=== PATIENT | male | born 1955 | race Caucasian/White ===

== ENCOUNTER → 2020-01-01 13:49 | Outpatient (BNVA) | payer MEDICARE, SELFPAY | PROVIDERS: Family Provider Family Medicine; PCP Family Medicine; Visit Provider Internal Medicine Rheumatology | DX: M06.00 Rheumatoid arthritis without rheumatoid factor, unspecified site (principal); Z79.899 Other long term (current) drug therapy; M43.22 Fusion of spine, cervical region; Z79.52 Long term (current) use of systemic steroids | CPT/HCPCS: 99214 ==

== ENCOUNTER → 2020-03-10 11:52 | Outpatient (BNVA) | payer MEDICARE, SELFPAY | PROVIDERS: Family Provider Family Medicine; PCP Family Medicine; Visit Provider Internal Medicine Rheumatology | DX: Z79.899 Other long term (current) drug therapy (principal) | CPT/HCPCS: 36415; 80076; 82306; 82565; 85025; 85651; 86140 ==

== ENCOUNTER → 2020-04-20 15:46 | Outpatient (BNVA) | payer MEDICARE, SELFPAY | PROVIDERS: Family Provider Family Medicine; PCP Family Medicine; Visit Provider Internal Medicine Rheumatology | DX: M06.00 Rheumatoid arthritis without rheumatoid factor, unspecified site (principal); M43.22 Fusion of spine, cervical region; Z79.52 Long term (current) use of systemic steroids; R76.8 Other specified abnormal immunological findings in serum | CPT/HCPCS: 99214 ==

== ENCOUNTER 2020-07-05 12:00 | Outpatient (CLI) | payer MEDICARE, SELFPAY ==
--- NOTE | 2020-07-05 12:10 | XR_ITS ---
WS: [id number] EXAM: Chest: PA and lateral DATE OF EXAMINATION: 07/05/2020, 1224 hours COMPARISON: Chest x-ray from 09/04/2019. 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 Prior neck surgery, bypass surgery and cardiac stents. FINDINGS: The heart size is normal. The mediastinal contours are again demonstrate wire banding for prior ster notomy. No hardware failure is seen. Multiple surgical clips in the left side of the heart. There has been interval placement of extensive cervical spine posterior decompression and fusion.. Pulmonary vascularity is within normal limits. The lungs are clear. No effusion, or pneumothorax. Bone density is normal in appearance. XR/XR chest 2V* [id number] IMPRESSION: NO ACUTE PULMONARY DISEASE.
== END 2020-07-05 12:01 | disposition home or self-care (01) ==
LOC: RAD 12:06
PROVIDERS: PCP Family Medicine; Visit Provider Internal Medicine Cardiovascular Disease
DX: S22.23XA Sternal manubrial dissociation, initial encounter for closed fracture (principal); X58.XXXA Exposure to other specified factors, initial encounter
CPT/HCPCS: 71046

== ENCOUNTER → 2020-07-22 14:57 | Outpatient (BNVA) | payer MEDICARE, SELFPAY | PROVIDERS: PCP Family Medicine; Visit Provider Internal Medicine Rheumatology | DX: M06.00 Rheumatoid arthritis without rheumatoid factor, unspecified site (principal); Z79.899 Other long term (current) drug therapy; M43.22 Fusion of spine, cervical region; Z79.52 Long term (current) use of systemic steroids | CPT/HCPCS: 36415; 80076; 82565; 85025; 85651; 86140; 99214 ==

== ENCOUNTER 2020-08-24 09:49 | Outpatient (CLI) | payer MEDICARE, SELFPAY ==
[2020-08-24 10:05] VITALS: BMI 28.5
--- NOTE | 2020-08-24 10:17 | NMCV_ITS ---
NM mary perf SPECT r/s* [id number] Aj Alegre Age: 64 Gender: M : 1955 Exam Date: 08/24/2020 11:11 Ordering Phys: Milena Batista MD ([email or web address]) Technologist: HANK Campa Exam Location: [facility] Indications: ATYPICAL CHEST PAIN STRESS TEST Please [facility] IMAGE PROTOCOL Rest/Stress 1 Lexiscan Day Radiopharmaceutical Dose (mCi) Administration Site Administered by Rest: Tc-99m 10.5 IV HANK Gerber Sestamibi Stress:Tc-99m 32.9 IV HANK Campa Sestamikody Rest: 24-Aug-2020 60 Discovery 630 Stress: 24-Aug-2020 30 Discovery 630 0.4mg Lexiscan. Images obtained in supine and prone position. SPECT RESULTS Technical Quality: Good Raw Data Analysis: Normal Image Corrections: No attenuation or motion correction applied Summed Stress Score: 0 Summed Rest Score: 0 Summed Difference Score: 0 PERFUSION FINDINGS Fairly uniform myocardial tracer uptake with no significant perfusion abnormalities FUNCTIONAL RESULTS (calculated via Gated SPECT) Stress Image LV EF (%): 72 Stress EDV (mL):68 TID: 0.78 Stress ESV (mL):19 FUNCTIONAL FINDINGS: Segmental wall motion analysis revealing no gross wall motion abnormalities IMPRESSIONS 1. Unremarkable myocardial perfusion imaging 2. Normal LV ejection fraction of 72%. 3. LV wall motion analysis revealing no gross wall motion normalities 4. Normal LV volume. No significant coronary ischemia, based on the above findings Dr Milena Batista MD FACC (Electronically Signed) Final Date: 24 August 2020 15:15 S
--- NOTE | 2020-08-24 10:17 | ECG_ITS ---
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 Interpretive Statements NAME OF STUDY: LEXISCAN SESTAMIBI STRESS TEST INDICATION: Chest Pain PROCEDURE: At the baseline, the EKG revealed normal sinus rhythm with a poor R wave progression. 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 Diffuse nonspecific ST-T changes.. The baseline blood pressure was 180/104 mm Hg with a heart rate of 86 beats/min. Lexiscan was infused over a period of 20 seconds. A total of 0.4 milligrams of Lexiscan was infused. The stress phase was continued for a total of 5 minutes. Heart rate at the end of the stress phase was 95 with a blood pressure 182/101. The EKG at the peak infusion revealed more prominent T depressions in the inferolateral leads Sestamibi was injected 20 seconds after the Lexiscan infusion. Blood pressure at the end of the recovery phase was 178/103 with a heart rate of 95 per minute. CONCLUSION: 1. Nonspecific EKG changes with the LexiScan infusion 2. No LexiScan induced chest pain or cardiac arrhythmia 3. Normal blood pressure and heart rate response 4. Sestamibi/sestamibi perfusion scan pending; see separate report. Electronically Signed On 08-24-2020 20:48:41 [employer]LECT[employer] OFFICER by Milena Batista M.D. [email or web address]
--- NOTE | 2020-08-24 12:59 | SUR.PREOP ---
Patient reports no pain or discomfort prior to the start of the procedure.
[2020-08-24] MEDS: regadenoson 0.4 Mg/5 ml Syringe IVP (13:04)
[2020-08-24 13:16] VITALS: BP 148/68; PULSE 73
== END 2020-08-24 09:50 | disposition home or self-care (01) ==
LOC: CDL 09:53
PROVIDERS: PCP Family Medicine; Visit Provider Internal Medicine Cardiovascular Disease
DX: R07.89 Other chest pain (principal); I10 Essential (primary) hypertension
CPT/HCPCS: 78452; 93017; A9500; J2785

== ENCOUNTER → 2020-09-27 13:47 | Outpatient (BNVA) | payer BC, SELFPAY | PROVIDERS: PCP Family Medicine; Visit Provider Internal Medicine Rheumatology | DX: Z79.899 Other long term (current) drug therapy (principal) | CPT/HCPCS: 36415; 80076; 82306; 82565; 85025; 85651; 86140 ==

== ENCOUNTER → 2020-10-27 13:13 | Outpatient (BNVA) | payer BC, SELFPAY | PROVIDERS: PCP Family Medicine; Visit Provider Internal Medicine Rheumatology | DX: M06.041 Rheumatoid arthritis without rheumatoid factor, right hand (principal); M06.042 Rheumatoid arthritis without rheumatoid factor, left hand; Z79.899 Other long term (current) drug therapy; Z79.52 Long term (current) use of systemic steroids; Z87.891 Personal history of nicotine dependence | CPT/HCPCS: 99214 ==

== ENCOUNTER → 2020-12-01 08:31 | Outpatient (BNVA) | payer BC, SELFPAY | PROVIDERS: PCP Family Medicine; Visit Provider Internal Medicine Rheumatology | DX: M06.041 Rheumatoid arthritis without rheumatoid factor, right hand (principal); M06.042 Rheumatoid arthritis without rheumatoid factor, left hand; Z79.899 Other long term (current) drug therapy | CPT/HCPCS: 80076; 82565; 85025; 86140 ==

== ENCOUNTER 2021-02-01 14:01 | Outpatient (CLI) | payer MEDICARE, SELFPAY ==
[2021-02-01] MEDS: iohexol 300 mg/mL 50 mL Btl PO (14:13)
--- NOTE | 2021-02-01 14:30 | CT_ITS ---
WS: [id number] CT ABDOMEN CONTRAST TECHNIQUE: Contrast enhanced CT of the abdomen with coronal and sagittal reformatted images. CLINICAL INFORMATION: R10.9 - Unspecified abdominal pain COMPARISON: CT 9 019 DLP: 943.[address] scans at [facility] use at least one of these dose optimization techniques: automat ed exposure control; mA and/or kV adjustment per patient size (includes targeted exams where dose is matched to clinical indication); or iterative reconstruction. FINDINGS: Diffuse fatty infiltration the liver. Incidental hepatic cysts. Cholecystectomy. Normal portal vein a nd splenic vein. Normal spleen. Normal pancreatic enhancement. Normal GE junction. Lung bases are wel l aerated. Normal caliber abdominal aorta. Adrenal glands are normal. Normal renal parenchymal enhanc ement. No hydronephrosis. Tiny right cortical cysts. Segmental narrowing involving the proximal transverse colon extending over approximately 9 CM with s ubmucosal enhancement and slight induration. This may be due to spasm but is nonspecific. Recommend c orrelation for colitis. This can be further evaluated with colonoscopy. No abdominal lymphadenopathy. Tiny fat-containing umbilical hernia. Sigmoid diverticulosis. No eviden ce of acute diverticulitis. Normal descending colon. Otherwise normal transverse colon. Normal append ix in the right lower quadrant. Hypertrophic changes lumbar spine. CT/CT abdomen w con* [id number] IMPRESSION: 1. Sigmoid diverticulosis. No evidence of acute diverticulitis. 2. Diffuse fatty infiltration of the liver. A few incidental hepatic cysts. 3. Segmental narrowing with slight induration involving the proximal transver se colon extending over approximately 9 CM. This may be due to spasm but is non specific. Recommend correlation for colitis. This can be further evaluated wit h colonoscopy. 4. Prior cholecystectomy. 5. Incidental fat-containing umbilical hernia. 6. No abdominal lymphadenopathy. 7. Normal caliber abdominal aorta. 8. No other significant changes from previous.
[2021-02-01 14:39] LABS: Blood Urea Nitrogen 15 mg/dL (8-23)
[2021-02-01] MEDS: iohexol 300 mg/mL 100 mL Btl IV (14:54)
== END 2021-02-01 14:02 | disposition home or self-care (01) ==
LOC: RADWPI 14:07
PROVIDERS: PCP Family Medicine; Visit Provider Surgery
DX: R10.9 Unspecified abdominal pain (principal); K57.30 Diverticulosis of large intestine without perforation or abscess without bleeding; K76.0 Fatty (change of) liver, not elsewhere classified; K42.9 Umbilical hernia without obstruction or gangrene; Z90.49 Acquired absence of other specified parts of digestive tract
CPT/HCPCS: 74160; 82565; 84520; Q9967

== ENCOUNTER → 2021-03-02 14:04 | Outpatient (BNVA) | payer MEDICARE, SELFPAY | PROVIDERS: PCP Family Medicine; Visit Provider Internal Medicine Rheumatology | DX: M06.041 Rheumatoid arthritis without rheumatoid factor, right hand (principal); M06.042 Rheumatoid arthritis without rheumatoid factor, left hand; Z79.899 Other long term (current) drug therapy; Z79.52 Long term (current) use of systemic steroids; Z87.891 Personal history of nicotine dependence | CPT/HCPCS: 36415; 80076; 99214 ==

== ENCOUNTER 2021-03-02 15:44 | Outpatient (CLI) | payer MEDICARE, SELFPAY ==
[2021-03-02 16:30] LABS: Alkaline Phosphatase 76 IU/L (40-130); Globulin 3.2 g/dL (1.3-4.6); Total Bilirubin 0.6 mg/dL (0.15-1.2); Total Protein 7.2 g/dL (6.6-8.7)
[2021-03-02 18:41] LABS: Alanine Aminotransferase 13 U/L (0-41); Aspartate Amino Transferase 26 U/L (0-40)
== END 2021-03-02 15:45 | disposition home or self-care (01) ==
LOC: LAB 15:50
PROVIDERS: PCP Family Medicine; Visit Provider Internal Medicine Rheumatology
DX: M06.041 Rheumatoid arthritis without rheumatoid factor, right hand (principal); M06.042 Rheumatoid arthritis without rheumatoid factor, left hand; Z79.899 Other long term (current) drug therapy
CPT/HCPCS: 36415; 80076

== ENCOUNTER → 2021-03-03 10:03 | Outpatient (BNVA) | payer MEDICARE, SELFPAY | PROVIDERS: PCP Family Medicine; Visit Provider Surgery | DX: Z20.822 Contact with and (suspected) exposure to COVID-19 (principal); R10.9 Unspecified abdominal pain; R19.7 Diarrhea, unspecified | CPT/HCPCS: 87635 ==

== ENCOUNTER 2021-03-08 09:00 | Day surgery (SDC) | payer MEDICARE, SELFPAY ==
[2021-03-04 12:47] VITALS: BMI 28.7
[2021-03-08 09:20] VITALS: BP 157/97; PULSE 89; RESP 18; TEMP 36.3; O2SAT 99
[2021-03-08] MEDS: sodium chloride 0.9% 1,000 ML 30 ML IV (09:45)
--- NOTE | 2021-03-08 10:08 | ANES.PREANE2 ---
Pre-Anesthetic Assessment Pre-Anesthetic Assessment: Height/Weight: Height 1.73 m Weight 85.729 kg Temp Pulse Resp BP Pulse Ox 97.3 F L 89 18 157/97 99 03/08/21 09:20 03/08/21 09:20 03/08/21 09:20 03/08/21 09:20 03/08/21 09:20 Preop Diagnosis: Epigastric pain Proposed Procedure: Operation Date: 03/08/21 10:00 Proposed Procedures p EGD 14086 R10.6(Not Applicable) - Tomi Ruiz MD s Colonoscopy 84279 R19.7(Not Applicable) - Tomi uRiz MD Was Beta Gibran taken within 24 hours: Yes Was Clonidine taken within 24 hours: N/A Last intake: Intake Last Liquid Date 03/07/21 Last Liquid Time 21:00 Last Solid Date 03/06/21 Last Solid Time 00:00 Social: Social History: No alcohol and No tobacco Exam: Pre-Anes Outpt Exam: alert, oriented x 3, clear to auscultation bilaterally and regular rate & rhythm Airway: Submandibular: WNL Cervical ROM: Other (limited) MP: 1 Pulmonary: Pulmonary: None reported CV/HEM: CV/HEM: CAD, HTN and WI : : None reported Hepatic: Hepatic: None reported GI: GI: GERD Comments: diarrhea Metabolic: Metabolic: None reported Musc/skel: Musc/skel: OA/DJD Neuropsych: Neuropsych: None reported Anesthetic Plan: ASA status: 3 Anesthesia: MAC PFSH Anesthesia PFSH: Medical History Atherosclerotic heart disease of [place] coronary artery without angina pectoris Atypical chest pain Benign essential HTN CAD (coronary artery disease) Chronic steroid use Dyslipidemia (high LDL; low HDL) Fusion of spine of cervical region GERD (gastroesophageal reflux disease) High risk medication use Hyperlipidemia Hypertension Immunization counseling Osteoarthritis PMR (polymyalgia rheumatica) Seronegative rheumatoid arthritis 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
--- NOTE | 2021-03-08 10:26 | W.PM.OPSUD ---
Surgery/Procedure H&P Update DATE OF PROCEDURE: March 08, 2021 DATE H&P PERFORMED: 02/16/21 H&P UPDATE INFORMATION: I have reviewed H&P completed within last 30 days, I have examined patient prior to procedure and No changes to prior documentation PREOP DIAGNOSIS: Epigastric pain PRIMARY INDICATION FOR PROCEDURE: THE SAME PLANNED PROCEDURE: Operation Date: 03/08/21 10:00 Proposed Procedures p EGD 95475 R10.6(Not Applicable) - Tomi Ruiz MD s Colonoscopy 75280 R19.7(Not Applicable) - Tomi Ruiz MD
--- NOTE | 2021-03-08 10:58 | ANE.PACU2 ---
Inpatient post-anesthesia follow up: Airway intact: Yes Vital signs: Temperature 97.3 F Pulse Rate 89 Respiratory Rate 18 Blood Pressure 157/97 Pulse Oximetry 99 Oxygen Delivery Me thod Room Air Oxygen Flow Rate Fraction of Inspir ed Oxygen Hydration adequate: Yes Nausea and vomiting: No Pain level: 1
[2021-03-08 11:00] VITALS: BP 110/71; PULSE 70; RESP 18; TEMP 36.5; O2SAT 96
[2021-03-08 11:19] VITALS: BP 124/78; PULSE 69; RESP 18; O2SAT 98
--- NOTE | 2021-03-08 14:48 | ANE.PACU2 ---
Inpatient post-anesthesia follow up: Airway intact: Yes Vital signs: Temperature 97.7 F Pulse Rate 69 Respiratory Rate 18 Blood Pressure 124/78 Pulse Oximetry 98 Oxygen Delivery Me thod Room Air Oxygen Flow Rate Fraction of Inspir ed Oxygen Hydration adequate: Yes Nausea and vomiting: No Pain level: 1 Mental status: Baseline
[2021-03-09 06:09] LABS: H. Pylori / CLO Test Negative
== END 2021-03-08 11:50 | disposition home or self-care (01) ==
PROVIDERS: PCP Family Medicine; Visit Provider Surgery
PROC: 0DJ08ZZ Inspection of Upper Intestinal Tract, Via Natural or Artificial Opening Endoscopic (ICD-10-PCS; CPT 43235; principal; 2021-03-08 10:00)
PROC: 0DJD8ZZ Inspection of Lower Intestinal Tract, Via Natural or Artificial Opening Endoscopic (ICD-10-PCS; CPT 45378; 2021-03-08 10:00)
DX: R10.13 Epigastric pain (principal); K21.9 Gastro-esophageal reflux disease without esophagitis; K57.30 Diverticulosis of large intestine without perforation or abscess without bleeding; K29.70 Gastritis, unspecified, without bleeding; Z79.52 Long term (current) use of systemic steroids; I10 Essential (primary) hypertension; I25.10 Atherosclerotic heart disease of native coronary artery without angina pectoris; E78.5 Hyperlipidemia, unspecified; Z98.1 Arthrodesis status; M19.90 Unspecified osteoarthritis, unspecified site; Z87.891 Personal history of nicotine dependence; I25.2 Old myocardial infarction
CPT/HCPCS: 43239; 45378; 82274; 83630; 87077; 87493; 87506; 88305; 96360; 96361; J2704; J7030

== ENCOUNTER → 2021-05-23 09:06 | Outpatient (BNVA) | payer MEDICARE, SELFPAY | PROVIDERS: PCP Family Medicine; Visit Provider Internal Medicine Rheumatology | DX: M06.041 Rheumatoid arthritis without rheumatoid factor, right hand (principal); M06.042 Rheumatoid arthritis without rheumatoid factor, left hand; Z79.899 Other long term (current) drug therapy; Z01.89 Encounter for other specified special examinations | CPT/HCPCS: 80076; 82565; 85025; 86140 ==

== ENCOUNTER → 2021-05-26 14:26 | Outpatient (BNVA) | payer MEDICARE, SELFPAY | PROVIDERS: PCP Family Medicine; Visit Provider Internal Medicine Rheumatology | DX: M06.041 Rheumatoid arthritis without rheumatoid factor, right hand (principal); M06.042 Rheumatoid arthritis without rheumatoid factor, left hand; Z79.899 Other long term (current) drug therapy; K57.90 Diverticulosis of intestine, part unspecified, without perforation or abscess without bleeding; K29.70 Gastritis, unspecified, without bleeding; Z79.52 Long term (current) use of systemic steroids; Z71.89 Other specified counseling; Z87.891 Personal history of nicotine dependence | CPT/HCPCS: 99214 ==

== ENCOUNTER → 2021-09-06 11:21 | Outpatient (BNVA) | payer MEDICARE, SELFPAY | PROVIDERS: PCP Family Medicine; Visit Provider Internal Medicine Rheumatology | DX: M06.041 Rheumatoid arthritis without rheumatoid factor, right hand (principal); M06.042 Rheumatoid arthritis without rheumatoid factor, left hand; Z79.899 Other long term (current) drug therapy; Z79.52 Long term (current) use of systemic steroids; R14.0 Abdominal distension (gaseous); Z98.1 Arthrodesis status; Z71.89 Other specified counseling; Z87.891 Personal history of nicotine dependence | CPT/HCPCS: 99214 ==

== ENCOUNTER → 2021-09-13 08:48 | Outpatient (BNVA) | payer MEDICARE, SELFPAY | PROVIDERS: PCP Family Medicine; Visit Provider Internal Medicine Rheumatology | DX: Z79.899 Other long term (current) drug therapy (principal); M06.041 Rheumatoid arthritis without rheumatoid factor, right hand; M06.042 Rheumatoid arthritis without rheumatoid factor, left hand | CPT/HCPCS: 80076; 82565; 85025; 86140 ==

== ENCOUNTER → 2022-01-02 11:18 | Outpatient (BNVA) | payer MEDICARE, SELFPAY | PROVIDERS: PCP Family Medicine; Visit Provider Internal Medicine Rheumatology | DX: M06.041 Rheumatoid arthritis without rheumatoid factor, right hand (principal); M06.042 Rheumatoid arthritis without rheumatoid factor, left hand; Z79.899 Other long term (current) drug therapy; Z79.52 Long term (current) use of systemic steroids; M43.22 Fusion of spine, cervical region; Z71.89 Other specified counseling | CPT/HCPCS: 80076; 82565; 85025; 86140; 99214 ==

== ENCOUNTER 2022-01-02 12:27 | Outpatient (CLI) | payer MEDICARE, SELFPAY ==
[2022-01-02 13:01] LABS: Basophils # 0.1 10^3/uL (0.0-0.1); Basophils % 0.5 %; Eosinophils % 0.1 %; Hematocrit 43.4 % (42.0-52.0); Hemoglobin 14.6 g/dL (11.7-16.6); Lymphocytes # 0.8 10^3/uL (0.8-4.8); Lymphocytes % 7.1 %; Mean Corpuscular HGB Conc 33.6 g/dL (30.0-36.0); Mean Corpuscular Hemoglobin 30.7 pg (28.0-34.0); Mean Corpuscular Volume 91.4 fl (80-94); Mean Platelet Volume 9.4 fL (7.4-10.4); Monocytes # 0.6 10^3/uL (0.2-0.9); Monocytes % 5.5 %; Neutrophils # 9.58 10^3/uL (1.8-7.7); Neutrophils % 82.3 %; Nucleated Red Blood Cells % 0 %; Platelet Count 157 10^3/cmm (130-400); Red Blood Count 4.75 10^6/uL (4.1-5.3); Red Cell Distribution Width 14.3 % (12.1-15.1); White Blood Count 11.7 10^3/uL (4.0-10.0)
[2022-01-02 13:28] LABS: Alanine Aminotransferase 25 U/L (0-41); Alkaline Phosphatase 53 IU/L (40-130); Aspartate Amino Transferase 20 U/L (0-40); Globulin 2.7 g/dL (1.3-4.6); Glomerular Filtration Rate 84.2 mL/min (90-130); Total Bilirubin 0.4 mg/dL (0.15-1.2); Total Protein 6.7 g/dL (6.6-8.7)
== END 2022-01-02 12:28 | disposition home or self-care (01) ==
LOC: LAB 12:29
PROVIDERS: PCP Family Medicine; Visit Provider Internal Medicine Rheumatology
DX: M06.041 Rheumatoid arthritis without rheumatoid factor, right hand (principal); M06.042 Rheumatoid arthritis without rheumatoid factor, left hand; Z79.899 Other long term (current) drug therapy
CPT/HCPCS: 80076; 82565; 85025; 86140

== ENCOUNTER → 2022-01-20 08:56 | Outpatient (BNVA) | payer MEDICARE, SELFPAY | PROVIDERS: PCP Family Medicine; Visit Provider Internal Medicine Cardiovascular Disease | DX: R07.89 Other chest pain (principal) | CPT/HCPCS: 99213 ==

== ENCOUNTER → 2022-05-08 13:28 | Outpatient (BNVA) | payer MEDICARE, SELFPAY | PROVIDERS: PCP Family Medicine; Visit Provider Internal Medicine Rheumatology | DX: M06.041 Rheumatoid arthritis without rheumatoid factor, right hand (principal); M06.042 Rheumatoid arthritis without rheumatoid factor, left hand; Z79.899 Other long term (current) drug therapy; Z79.52 Long term (current) use of systemic steroids; Z98.1 Arthrodesis status; Z96.7 Presence of other bone and tendon implants; Z71.89 Other specified counseling | CPT/HCPCS: 80076; 82565; 85025; 85651; 86140; 99214 ==

== ENCOUNTER → 2022-09-06 12:29 | Outpatient (BNVA) | payer MEDICARE, SELFPAY | PROVIDERS: PCP Family Medicine; Visit Provider Internal Medicine Rheumatology | DX: M06.041 Rheumatoid arthritis without rheumatoid factor, right hand (principal); M06.042 Rheumatoid arthritis without rheumatoid factor, left hand; Z79.899 Other long term (current) drug therapy; Z71.89 Other specified counseling; Z79.52 Long term (current) use of systemic steroids; Z98.890 Other specified postprocedural states; Z96.7 Presence of other bone and tendon implants | CPT/HCPCS: 36415; 80076; 82565; 85025; 86140; 99214 ==

== ENCOUNTER → 2022-10-02 15:25 | Outpatient (BNVA) | payer MEDICARE, SELFPAY | PROVIDERS: PCP Family Medicine; Referring Provider Nurse Practitioner Family; Visit Provider Specialist | DX: M17.0 Bilateral primary osteoarthritis of knee (principal) | CPT/HCPCS: 73560; 73565; 99204 ==

== ENCOUNTER → 2022-10-31 13:49 | Outpatient (BNVA) | payer MEDICARE, SELFPAY | PROVIDERS: PCP Family Medicine; Visit Provider Internal Medicine Cardiovascular Disease | DX: I25.10 Atherosclerotic heart disease of native coronary artery without angina pectoris (principal); Z95.1 Presence of aortocoronary bypass graft; E78.5 Hyperlipidemia, unspecified; S22.23XK Sternal manubrial dissociation, subsequent encounter for fracture with nonunion; I10 Essential (primary) hypertension; X58.XXXD Exposure to other specified factors, subsequent encounter | CPT/HCPCS: 99214 ==

== ENCOUNTER 2022-12-11 08:05 | Outpatient (CLI) | payer MEDICARE, SELFPAY ==
--- NOTE | 2022-12-11 08:22 | NM_ITS ---
WS: [id number] NUCLEAR MEDICINE BONE SCAN Radiopharmaceutical: 24.9 Tc-99m MDP mCi IV Injection site: Antecubital Postinjection imaging delay: 1 hr CLINICAL INFORMATION: abnormality to xray COMPARISON: Radiograph October 02, 2022 FINDINGS: Bone lesions: Prior postoperative changes plate and screw fixation RIGHT proximal tibia. Normal peria rticular uptake about the RIGHT proximal tibia. No evidence of osteomyelitis or hardware loosening. H ypertrophic RIGHT patella with patella enthesophytes with associated increased activity. Mild degener ative uptake LEFT knee. Increased asymmetric intense uptake about the RIGHT sacroiliac joint is indeterminant. Recommend furt her evaluation with MRI. Soft tissue contours: Normal. Kidneys: Normal. Other findings: Dental degenerative uptake both AC joints and sternoclavicular joints. NM/NM bone scan whole body* [id number] IMPRESSION: 1. Postoperative changes lateral plate and screw fixation RIGHT proximal tibia . No evidence of osteomyelitis or loosening. 2. Hypertrophic patella with enthesophytes and increased punctate activity abo ut the patella likely inflammatory or degenerative 3. Asymmetric intense uptake involving the RIGHT sacroiliac joint posteriorly. Recommend correlation with sacroiliitis or sacral pain. This is indeterminant and recommend further evaluation with MRI pelvis/sacrum
== END 2022-12-11 08:06 | disposition home or self-care (01) ==
PROVIDERS: PCP Family Medicine; Visit Provider Specialist
DX: M25.569 Pain in unspecified knee (principal); Z98.890 Other specified postprocedural states
CPT/HCPCS: 78306; A9561

== ENCOUNTER → 2022-12-21 10:03 | Outpatient (BNVA) | payer MEDICARE, SELFPAY | PROVIDERS: PCP Family Medicine; Visit Provider Nurse Practitioner Family | DX: M17.0 Bilateral primary osteoarthritis of knee (principal); M53.3 Sacrococcygeal disorders, not elsewhere classified; M54.16 Radiculopathy, lumbar region | CPT/HCPCS: 99214 ==

== ENCOUNTER 2023-01-16 06:55 | Outpatient (CLI) | payer MEDICARE, SELFPAY ==
--- NOTE | 2023-01-16 07:15 | MR_ITS ---
WS: [id number] MRI LUMBAR SPINE NONCONTRAST HISTORY: Severe pain down RIGHT side. No injury. COMPARISON: None available. TECHNIQUE: Sagittal and axial multisequence imaging is submitted. Very mild narrowing of the cervical canal at C2-3. Prior fusion hardware at C6-7. 2 mm retrolisthesis of L5. No marrow edema or fracture. There is a small amount of increased signal w ithin the RIGHT sacrum and pelvis which will be described in better on the sacrum MRI performed on th e same day. Disc spaces and vertebral body heights are well-preserved. Conus terminates normally at L1. L1-L2: Mild facet arthritis. No stenosis. L2-L3: Mild ligamentum flavum and facet arthritis. No significant stenosis. L3-L4: Mild annular disc bulge with ligamentum flavum and facet arthritis. There is mild disc and fac et encroachment into the subarticular recesses and foramina. Mild bilateral subarticular recess and f oraminal stenosis, slightly greater on the RIGHT. L4-L5: Mild ligamentum flavum and facet arthritis. Minimal foraminal narrowing. L5-S1: Asymmetric disc bulging and mild osteophytic ridging. Disc asymmetrically extends into the LEF T subarticular recess and foramina. Disc contacts the LEFT S1 nerve root with moderate to severe LEFT foraminal narrowing. Near complete effacement of fat in the LEFT foramen. Moderate RIGHT foraminal s tenosis. LEFT hemilaminectomy defect. Mild renal atrophy. MR/MR lumbar spine wo con* [id number] IMPRESSION: 1. Asymmetric disc bulging at L5-S1, extending greater to the LEFT. LEFT subar ticular recess and foraminal stenosis. Moderate to severe LEFT foraminal stenos is. Disc contacts both the LEFT L5 and S1 nerve roots. 2. Moderate RIGHT foraminal stenosis at L5-S1. 3. Mild subarticular recess and foraminal stenosis at L3-4. 4. Signal abnormality is again noted in the RIGHT sacrum. This was described o n the recent MRI sacrum. Please refer to that report.
--- NOTE | 2023-01-16 08:00 | MR_ITS ---
WS: [id number] MRI SACRUM without CONTRAST. COMPARISON: Bone scan 10/10/2023 Multiplanar, multisequence imaging is performed without contrast. Significant abnormal T2 and STIR signal throughout the RIGHT sacrum and a large portion of the RIGHT ilium extending to the ischial tuberosity. There is abnormal increased T2 signal extending into the S I joint and also involving the soft tissues surrounding the RIGHT hip. Inflammatory type changes exte nding along the iliacus muscle. Inflammatory changes surrounding what is probably the sciatic nerve o n the RIGHT. There is no well-formed fluid collection. There is no associated soft tissue mass. On th e T1 sequence as they are significantly decreased signal throughout the RIGHT sacrum and ilium. The LEFT SI joint and hip are normal. The visualized lower lumbar region is normal. No free fluid in the pelvis. MR/MR sacrum wo con* [id number] IMPRESSION: 1. Significant abnormal signal involving the RIGHT sacrum, SI joint and RIGHT ilium. Increased signal on the T2 and STIR sequences and very low signal on the T1 sequences. There is involvement of the adjacent soft tissues. Favor infecti on/osteomyelitis as a likely etiology. This is not likely posttraumatic. Neopla sm such as metastatic disease within the differential also but thought less lik michela. 2. These changes correspond to the findings on the bone scan imaging. Postcont rast MR imaging may provide additional information.
== END 2023-01-16 06:56 | disposition home or self-care (01) ==
LOC: RAD 06:58
PROVIDERS: PCP Family Medicine; Visit Provider Nurse Practitioner Family
DX: M53.3 Sacrococcygeal disorders, not elsewhere classified (principal); M51.27 Other intervertebral disc displacement, lumbosacral region; M48.061 Spinal stenosis, lumbar region without neurogenic claudication; M48.07 Spinal stenosis, lumbosacral region
CPT/HCPCS: 72148

== ENCOUNTER → 2023-01-22 13:58 | Outpatient (BNVA) | payer MEDICARE, SELFPAY | PROVIDERS: PCP Family Medicine; Visit Provider Internal Medicine Rheumatology | DX: M06.041 Rheumatoid arthritis without rheumatoid factor, right hand (principal); M06.042 Rheumatoid arthritis without rheumatoid factor, left hand; Z79.899 Other long term (current) drug therapy; Z71.89 Other specified counseling; M53.3 Sacrococcygeal disorders, not elsewhere classified | CPT/HCPCS: 99214 ==

== ENCOUNTER 2023-02-06 11:23 | Outpatient (CLI) | payer MEDICARE, SELFPAY ==
--- NOTE | 2023-02-06 11:45 | MR_ITS ---
WS: [id number] MR OF THE SACRUM WITHOUT GADOLINIUM ENHANCEMENT. INDICATION: Low back pain. Pain and RIGHT leg. Recent biopsy. COMPARISON: January 16, 2023 TECHNIQUE: Sagittal T2, coronal T1, coronal STIR, axial T2 fat sat. FINDINGS: Again seen is diffuse T2 signal abnormality involving the RIGHT hemisacrum extending into t he RIGHT ilium. This crosses the RIGHT sacroiliac joint similar in appearance to the prior examinatio n. Associated soft tissue edema about the RIGHT sacrum and ilium. Edema extends about the RIGHT iliac us muscle. This does not appear significantly changed compared to previous. Loss of the normal fatty T1 bone marrow signal in the RIGHT ilium and RIGHT hemisacrum suspicious for osteomyelitis. Small amount of fluid in the RIGHT SI joint. Perineural inflammation extends into the RIGHT sacral foramen. No drainable fluid collections. Tiny amount of fluid about the dorsal SI joint similar in appearance to previous. MR/MR sacrum wo con* [id number] IMPRESSION: 1. Overall no significant interval changes in the diffuse edema involving the RIGHT hemisacrum and RIGHT ilium extending across the sacroiliac joint. Associa caitlin replacement normal fatty T1 bone marrow signal in the RIGHT sacrum and iliu m. Findings suspicious for infection with osteomyelitis. This is not significan tly changed compared to previous. 2. Small amount of fluid in the RIGHT sacroiliac joint and about the dorsal SI joint unchanged. No drainable fluid collections. 3. Perineural infection/inflammation involving the RIGHT S1 and S2 nerve roots similar to previous. 4. Soft tissue edema extends into the RIGHT pelvic musculature involving the i liacus unchanged. 5. No other significant interval changes. Notified BRISA Sapp at 02/06/2023 1:42 PM.
== END 2023-02-06 11:24 | disposition home or self-care (01) ==
LOC: RAD 11:26
PROVIDERS: PCP Family Medicine; Visit Provider Nurse Practitioner Family
DX: M53.3 Sacrococcygeal disorders, not elsewhere classified (principal)
CPT/HCPCS: 72148

== ENCOUNTER 2023-02-13 13:17 | Emergency (ER) | payer MEDICARE, SELFPAY ==
[2023-02-13] VITALS (9 sets, daily range): BP systolic 144–182; BP diastolic 73–94; PULSE 66–90; RESP 16–17; TEMP 36.6–36.9; O2SAT 94–98
--- NOTE | 2023-02-13 15:30 | MRR_ITS ---
PROCEDURE INFORMATION: Exam: MR Pelvis With Contrast, Sacrum Exam date and time: 02/13/2023 4:18 PM Age: 67 years old Clinical indication: Abnormal findings; Abnormal xray or scan of thoracolumbar spine; Prior surgery; Surgery type: L-spiine/right hip biopsy; Patient HX: Overall no significant interval changes in the diffuse edema involving the right hemisacrum and. Right ilium extending across the sacroiliac joint. Associated replacement normal fatty t1 bone. Marrow signal in the right sacrum and ilium. Findings suspicious for infection with osteomyelitis. This is not significantly changed compared to previous. 2. Small amount of fluid in the right sacroiliac joint and about the dorsal si joint unchanged. No. Drainable fluid collections. 3. Perineural infection/inflammation involving the right s1 and s2 nerve roots similar to previous. 4. Soft tissue edema extends into the right pelvic musculature involving the iliacus unchanged. 5. No other significant interval changes. MR sacrum 02/06/23; Additional info: Pain, prior abnormal imaging TECHNIQUE: Imaging protocol: Magnetic resonance imaging of the pelvis with contrast. Exam focused on the sacrum. Contrast material: MULTIHANCE; Contrast volume: 18 ml; Contrast route: INTRAVENOUS (IV); COMPARISON: MR sacrum wo con* [id number] 02/06/2023 11:50 AM FINDINGS: There is extensive periarticular bone enhancement and soft tissue edema associated with the right sacroiliac joint. There is a moderate amount of loculated fluid and synovitis in the joint space. Subtle periarticular erosive/destructive changes are evident. Left sacroiliac joint is grossly normal in appearance. There is no MR evidence of acute fracture or dislocation. Alignment is anatomic. There is no organized collection or soft tissue mass. No acute tendon or ligament injury is identified. MR/MR sacrum w con [id number] IMPRESSION: Severe right-sided sacroiliitis, likely secondary to septic arthritis/osteomyelitis, as described above.
[2023-02-13] MEDS: gadobenate dimeglumine 20 mL vial IV (16:23)
--- NOTE | 2023-02-13 18:08 | PC.NURSE ---
VS OBTAINED VIA TECH
--- NOTE | 2023-02-13 20:02 | ED_ITS ---
HPI - Extremity Problem General: Chief complaint: Extremity Problem,Nontraumatic Stated complaint: hip pain Time Seen by Provider: 02/13/23 19:58 PFSH ED PFSH: Medical History Atherosclerotic heart disease of [place] coronary artery without angina pectoris Atypical chest pain Benign essential HTN CAD (coronary artery disease) Chronic steroid use Diverticulosis Dyslipidemia (high LDL; low HDL) Epigastric pain Fusion of spine of cervical region Gastritis GERD (gastroesophageal reflux disease) High risk medication use History of nonmelanoma skin cancer Hyperlipidemia Hypertension Immunization counseling Osteoarthritis PMR (polymyalgia rheumatica) Seronegative rheumatoid arthritis 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 Surgical History History of cholecystectomy History of coronary artery bypass graft S/P cervical spinal fusion Family History Father CAD (coronary artery disease) Grandmother CAD (coronary artery disease) Diabetes Lung disease Denies family history of Clotting disorder Dementia Chronic kidney disease (CKD) Suicide Anesthesia complication Bleeding disorder Cancer Stroke Social History Smoking and tobacco status: never smoked Alcohol intake: never Substance/Drug Use: never Course Vital Signs: Vital signs: Vital Signs Temperature 97.9 F 02/13/23 19:30 Pulse Rate 76 02/13/23 19:30 Respiratory Rate 16 02/13/23 18:08 Blood Pressure 182/94 02/13/23 19:30 Pulse Oximetry 98 02/13/23 19:30 Oxygen Delivery Me thod Room Air 02/13/23 19:30 MDM - Extremity (Nontraumatic) Lab Data Radiology Impressions Sacrum/Coccyx MRI 02/13/23 15:30 IMPRESSION: Severe right-sided sacroiliitis, likely secondary to septic arthritis/osteomyelitis, as described above. Discharge Plan Discharge Condition: Stable Prescriptions: No Action zolpidem [Ambien] 10 mg tablet 10 mg PO DAILY venlafaxine 150 mg capsule,extended release 24hr 150 mg PO DAILY hydrocodone-acetaminophen 10-325 mg tablet 1 tab PO BID PRN (Reason: Pain) alprazolam [Xanax] 2 mg tablet 2 mg PO BID fluticasone propionate 50 mcg/actuation spray,suspension 2 spray INTRANASAL DAILY nitroglycerin 0.4 mg tablet, sublingual 0.4 mg SUBLINGUAL Q5M PRN (Reason: Chest Pain) hydrochlorothiazide 25 mg tablet 12.5 mg PO DAILY simethicone [Gas Relief (simethicone)] 80 mg tablet,chewable 80 mg PO DAILY Narcan 4 mg/actuation spray,non-aerosol 4 mg intranasal Q3M PRN Rx Instructions: spray 1 dose into ONE nostril; alternate nostrils w each dose until help arrives cyanocobalamin (vitamin B-12) 1,000 mcg/15 mL liquid 500 mcg PO DAILY cholecalciferol (vitamin D3) 25 mcg (1,000 unit) capsule 25 mcg PO DAILY methylprednisolone [Medrol (Andrew)] 4 mg tablets,dose pack See Rx Instructions PO PER PKG DIR Qty: 21 0RF Rx Instructions: PO PER PKG DIR pantoprazole 40 mg tablet,delayed release (DR/EC) See Rx Instructions .ROUTE .COMPLEX Qty: 90 1RF Dose Instruction: Take 1 tablet by mouth once daily Rx Instructions: Take 1 tablet by mouth once daily prednisone 5 mg tablet 5 mg PO BID Qty: 60 3RF gabapentin 300 mg capsule 300 mg PO TID baclofen 10 mg tablet 10 mg PO BID carvedilol 3.125 mg tablet 3.125 mg PO BID Qty: 60 5RF Rx Instructions: must administer with a meal/food carvedilol 6.25 mg tablet 6.25 mg PO BID 30 Days Qty: 60 5RF Rx Instructions: must administer with a meal/food methotrexate sodium 2.5 mg tablet 20 mg PO .Q7days Qty: 40 3RF Hold Instructions: Doctor's Order Rx Instructions: Split dose Take 4 tabs by mouth in AM and 4 in PM on same day 1x a week clobetasol 0.05 % ointment 1 applic topical BID 14 Days Qty: 60 1RF Rx Instructions: Apply to affected areas no more then two weeks/mo prn alternating with triamcinolone mupirocin 2 % ointment 1 applic topical BID Qty: 22 1RF Rx Instructions: Apply to affected area(s) until healed. ammonium lactate 12 % cream 1 applic topical DAILY Qty: 385 2RF Rx Instructions: Apply to arms daily valsartan 160 mg tablet 160 mg PO DAILY Qty: 90 3RF diazepam [Valium] 5 mg tablet 5 mg PO .COMPLEX PRN (Reason: anxiety) Qty: 2 0RF Rx Instructions: 5 mg orally 1 hour before procedure. You may repeat the second tablet 1/2- hour before PRN; Enbrel 50 mg/mL (1 mL) syringe See Rx Instructions .ROUTE .COMPLEX Qty: 4 1RF Hold Instructions: Doctor's Order Dose Instruction: inject 50 MG SUBCUTANEOUSLY ONCE WEEKLY Rx Instructions: inject 50 MG SUBCUTANEOUSLY ONCE WEEKLY Referrals: Jay Roberts [Primary Care Provider] - Coding Level of Care Code ED Certified Medical Technician Assistant for g Sagar
--- NOTE | 2023-02-13 20:11 | W.ED.EXTPRO ---
HPI - Extremity Problem General: Chief complaint: Extremity Problem,Nontraumatic Stated complaint: hip pain Time Seen by Provider: 02/13/23 19:58 History of Present Illness: Mr. Alegre is a 67-year-old gentleman presenting to the emergency department for evaluation of right pelvis pain with radiation to the leg. Onset of symptoms was gradual approximately 4 months ago without known specific provoking event. Since that time he has had worsening symptoms which have become severe and unrelenting and limited his ability to ambulate. He has been evaluated in the outpatient setting and trialed on various increasing dose and strength of opiates which are no longer helping. At times he does note some weakness however not consistently in the right leg and there is radiation to the right knee region. Overall course of symptoms has worsened. He notes generalized illness associated this though no specific focus of infection identified outside of the suspected joint infection. Intensity is severe. Course has worsened. No other specific changes in health, exacerbating, or alleviating factors identified. Patient does have a history of rheumatoid arthritis, he has a remote history of knee surgery, and remote history of cervical spine surgery. Patient has seen orthopedics in the outpatient setting as well as continuing to see his educational psychologist. He had a MRI without contrast of the pelvis on 01/16 with impression as follows: MPRESSION: ? 1.? Significant abnormal signal involving the RIGHT sacrum, SI joint and RIGHT ilium. Increased signal on the T2 and STIR sequences and very low signal on the T1 sequences. There is involvement of the adjacent soft tissues. Favor infection/osteomyelitis as a likely etiology. This is not likely posttraumatic. Neoplasm such as metastatic disease within the differential also but thought less likely. 2.? These changes correspond to the findings on the bone scan imaging. Postcontrast MR imaging may provide additional information. ? He had an erroneous repeat without contrast study when he was supposed to have a study with contrast on 02/06 which shows essentially no significant changes. He was supposed to have outpatient MRI today however came to the emergency department for worsening uncontrolled pain. Onset (ago): week(s) Pain Consistency: constant Location: right Quality: burning, stabbing, aching and sharp Radiation: distal Relieving factors: nothing Exacerbating factors: weight bearing, walking and palpation Associated symptoms: Reports other Review of Systems General: Reports: 10 or more systems reviewed and unremarkable except in HPI and below PFSH ED PFSH: Medical History Atherosclerotic heart disease of [place] coronary artery without angina pectoris Atypical chest pain Benign essential HTN CAD (coronary artery disease) Chronic steroid use Diverticulosis Dyslipidemia (high LDL; low HDL) Epigastric pain Fusion of spine of cervical region Gastritis GERD (gastroesophageal reflux disease) High risk medication use History of nonmelanoma skin cancer Hyperlipidemia Hypertension Immunization counseling Osteoarthritis PMR (polymyalgia rheumatica) Seronegative rheumatoid arthritis 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 Surgical History History of cholecystectomy History of coronary artery bypass graft S/P cervical spinal fusion Family History Father CAD (coronary artery disease) Grandmother CAD (coronary artery disease) Diabetes Lung disease Denies family history of Clotting disorder Dementia Chronic kidney disease (CKD) Suicide Anesthesia complication Bleeding disorder Cancer Stroke Social History Smoking and tobacco status: never smoked Alcohol intake: never Substance/Drug Use: never Physical Exam Const: COMMON NORMALS: alert GENERAL APPEARANCE: cooperative and well developed HENMT: COMMON NORMALS: normocephalic and atraumatic HEAD & SCALP: normocephalic and atraumatic Eye: COMMON NORMALS: conjunctivae normal CONJUNCTIVA: Yes conjunctivae normal SCLERA: sclerae normal Neck/C-Spine: COMMON NORMALS: supple GENERAL: Yes trachea midline Resp: COMMON NORMALS: clear to auscultation bilaterally EFFORT & INSPECTION: Yes able to speak in complete sentences AUSCULTATION: clear to auscultation bilaterally Cardio: COMMON NORMALS: regular rate and regular rhythm RATE: regular rate RHYTHM: regular rhythm GI: COMMON NORMALS: Soft to palpation PALPATION: Yes Soft to palpation and No Tenderness to palpation present (GI) Back/Pelvis: OTHER: Right lower back and right sacral significant tenderness to palpation with continued tenderness around the pelvis. Limitations in hip range of motion secondary to pain. Extremity: NARRATIVE EXTREMITY EXAM: Pain with palpation of right knee without obvious bony abnormality. Distal CMS intact. GENERAL: Yes normal exam except as noted and No edema Neuro: COMMON NORMALS: moves all extremities SENSORIUM/ORIENTATION: Yes alert and No Orientation impaired Psych: COMMON NORMALS: mental status grossly normal and Normal thought process present THOUGHT PROCESS: Normal thought process present Course Vital Signs: Vital signs: Vital Signs Temperature 97.9 F 02/13/23 19:30 Pulse Rate 85 02/14/23 05:38 Respiratory Rate 18 02/14/23 09:15 Blood Pressure 146/76 02/14/23 09:16 Pulse Oximetry 98 02/14/23 05:38 Oxygen Delivery Me thod Room Air 02/14/23 05:38 MDM - Extremity (Nontraumatic) Medical Decision Making 67-year-old gentleman with history of RA and history of prior orthopedic/spine procedures presenting to the emergency department for increased pain in the context of suspected septic SI joint. Exam as above. Patient is mildly ill-appearing however nontoxic and vitals are satisfactory. Labs with no leukocytosis, normal hemoglobin and platelet count. Metabolic panel without significant derangement. ESR 12, CRP 57.7 MRI sacrum with contrast performed today and read as follows: FINDINGS: ?There is extensive periarticular bone enhancement and soft tissue edema associated with the right sacroiliac joint. There is a moderate amount of loculated fluid and synovitis in the joint space. Subtle periarticular erosive/destructive changes are evident. Left sacroiliac joint is grossly normal in appearance. There is no MR evidence of acute fracture or dislocation. Alignment is anatomic. There is no organized collection or soft tissue mass. No acute tendon or ligament injury is identified. MR/MR sacrum w con [id number] IMPRESSION: Severe right-sided sacroiliitis, likely secondary to septic arthritis/osteomyelitis, as described above. X-ray demonstrates chronic degenerative changes in the right knee however no acute fracture or evidence of acute hardware failure. Patient treated with IV analgesia with only minimal improvement. I discussed the case with orthopedic service as well as hospitalist service. Ultimately the patient exceeds our capability for both specialty consultation and further diagnostic studies. Given worsening of symptoms and MRI findings I do believe that the patient warrants inpatient evaluation. Patient transferred for definitive care. He was agreeable with this plan. Medical Records I reviewed the patient's medical records. Lab Data I reviewed the patient's lab results. 02/13/23 20:31 02/13/23 20:31 Radiology Impressions Sacrum/Coccyx MRI 02/13/23 15:30 IMPRESSION: Severe right-sided sacroiliitis, likely secondary to septic arthritis/osteomyelitis, as described above. Knee X-Ray 02/13/23 21:57 IMPRESSION: 1. Tibial metaphyseal surgical hardware in place. 2. Meniscal chondrocalcinosis Laboratory Results WBC 6.4 10^3/uL (4.0-10.0) 02/13/23 20: RBC 4.51 10^6/uL (4.1-5.3) 02/13/23 20: Hgb 12.4 g/dL (11.7-16.6) 02/13/23 20: Hct 38.4 % (42.0-52.0) L 02/13/23: MCV 85.1 fl (80-94) 02/13/23: MCH 27.5 pg (28.0-34.0) L 02/13/23: MCHC 32.3 g/dL (30.0-36.0) 02/13/23: RDW 13.9 % (12.1-15.1) 02/13/23: Plt Count 234 10^3/cmm (130-400) 02/13/23: MPV 9.1 fL (7.4-10.4) 02/13/23: Neut % (Auto) 72.3 % 02/13/23: Lymph % (Auto) 15.2 % 02/13/23: Republic % (Auto) 10.0 % 02/13/23: Eos % (Auto) 0.8 % 02/13/23: Baso % (Auto) 0.6 % 02/13/23: Neut # (Auto) 4.61 10^3/uL (1.8-7.7) 02/13/23: Lymph # (Auto) 1.0 10^3/uL (0.8-4.8) 02/13/23: Republic # (Auto) 0.6 10^3/uL (0.2-0.9) 02/13/23 20: Eos # (Auto) 0.1 10^3/uL (0.0-0.8) 02/13/23: Baso # (Auto) 0.0 10^3/uL (0.0-0.1) 02/13/23 20: Nucleated RBC % (auto) 0 % 02/13/23 20: Nucleated RBCs # 0.0 /100WBC 02/13/23 20: ESR 12 mm/hr (0-10) H 02/13/23 20: Sodium 138 mmol/L (136-145) 02/13/23 20: Potassium 3.7 mmol/L (3.5-5.1) 02/13/23: Chloride 100 mmol/L (98-107) 02/13/23 20: Carbon Dioxide 29 mmol/L (22-29) 02/13/23 20: Anion Gap 12.7 (5-19) 02/13/23 20: BUN 8 mg/dL (8-23) 02/13/23 20: Creatinine 1.1 mg/dL (0.7-1.2) 02/13/23 20: GFR Calculation 66.6 mL/min (90-130) L 02/13/23: Glucose 92 mg/dL (65-115) 02/13/23 20: Calculated Osmolality 284 mOsm/kg (285-295) L 02/13/23 20: Calcium 9.2 mg/dL (8.5-10.5) 02/13/23 20: Total Bilirubin 0.5 mg/dL (0.15-1.2) 02/13/23 20: AST 14 U/L (0-40) 02/13/23 20: ALT 9 U/L (0-41) 02/13/23 20: Alkaline Phosphatase 80 U/L (40-130) 02/13/23 20: C-Reactive Protein 57.7 mg/L (0.0-4.9) H 02/13/23 20: Total Protein 7.3 g/dL (6.6-8.7) 02/13/23 20: Albumin 3.9 g/dL (3.5-5.2) 02/13/23 20: Globulin 3.4 g/dL (1.3-4.6) 02/13/23 20: Discharge Plan Discharge Patient Disposition: Xfer Short-Term Hosp Clinical Impression: Sacroiliitis, Chronic steroid use, Septic joint, Intractable pain, Osteomyelitis, Immunosuppressed status Condition: Stable Referrals: Jay Robrets [Primary Care Provider] - Coding Level of Care Code ED Installation Coordinator for Ruddy Keith
[2023-02-13 20:50] LABS: Erythrocyte Sedimentation Rate 12 mm/hr (0-10)
[2023-02-13 20:51] LABS: Basophils % 0.6 %; Eosinophils # 0.1 10^3/uL (0.0-0.8); Eosinophils % 0.8 %; Hematocrit 38.4 % (42.0-52.0); Hemoglobin 12.4 g/dL (11.7-16.6); Lymphocytes % 15.2 %; Mean Corpuscular HGB Conc 32.3 g/dL (30.0-36.0); Mean Corpuscular Hemoglobin 27.5 pg (28.0-34.0); Mean Corpuscular Volume 85.1 fl (80-94); Mean Platelet Volume 9.1 fL (7.4-10.4); Monocytes # 0.6 10^3/uL (0.2-0.9); Neutrophils # 4.61 10^3/uL (1.8-7.7); Neutrophils % 72.3 %; Nucleated Red Blood Cells % 0 %; Platelet Count 234 10^3/cmm (130-400); Red Blood Count 4.51 10^6/uL (4.1-5.3); Red Cell Distribution Width 13.9 % (12.1-15.1); White Blood Count 6.4 10^3/uL (4.0-10.0)
[2023-02-13] MEDS: HYDROmorphone 1 mg/mL INJ 1 mL 0.5 MG IVP (20:52)
[2023-02-13 21:09] LABS: Alanine Aminotransferase 9 U/L (0-41); Albumin Level 3.9 g/dL (3.5-5.2); Alkaline Phosphatase 80 U/L (40-130); Anion Gap 12.7 (5-19); Aspartate Amino Transferase 14 U/L (0-40); Blood Urea Nitrogen 8 mg/dL (8-23); C Reactive Protein 57.7 mg/L (0.0-4.9); Calcium 9.2 mg/dL (8.5-10.5); Carbon Dioxide 29 mmol/L (22-29); Chloride 100 mmol/L (98-107); Globulin 3.4 g/dL (1.3-4.6); Glomerular Filtration Rate 66.6 mL/min (90-130); Glucose 92 mg/dL (65-115); Osmolality Calculated 284 mOsm/kg (285-295); Potassium 3.7 mmol/L (3.5-5.1); Sodium 138 mmol/L (136-145); Total Bilirubin 0.5 mg/dL (0.15-1.2); Total Protein 7.3 g/dL (6.6-8.7)
[2023-02-13] MEDS: HYDROmorphone 1 mg/mL INJ 1 mL IVP ×2 (21:37→23:28)
--- NOTE | 2023-02-13 21:57 | XRR_ITS ---
PROCEDURE INFORMATION: Exam: XR Right Knee Exam date and time: 02/13/2023 10:01 PM Age: 67 years old Clinical indication: Pain; Right; Prior surgery; Surgery date: 6+ months; Surgery type: RT knee; Additional info: R knee pain, atrumatic TECHNIQUE: Imaging protocol: Radiologic exam of the right knee. Views: 3 views. COMPARISON: NM bone scan whole body* [id number] 12/11/2022 8:22 AM FINDINGS: Bones/joints: Tibial metaphyseal surgical hardware in place. Soft tissues: Meniscal chondrocalcinosis XR/XR knee RT 3V* [id number] IMPRESSION: 1. Tibial metaphyseal surgical hardware in place. 2. Meniscal chondrocalcinosis
[2023-02-14] VITALS (7 sets, daily range): BP systolic 139–165; BP diastolic 62–102; PULSE 64–85; RESP 14–18; O2SAT 90–98
[2023-02-14] MEDS: HYDROmorphone 1 mg/mL INJ 1 mL IVP ×3 (05:33→09:15)
== END 2023-02-14 09:17 | disposition short-term general hospital (02) ==
PROVIDERS: Emergency Provider Emergency Medicine; PCP Family Medicine
DX: M46.1 Sacroiliitis, not elsewhere classified (principal); M00.9 Pyogenic arthritis, unspecified; M86.9 Osteomyelitis, unspecified; D84.9 Immunodeficiency, unspecified; Z79.52 Long term (current) use of systemic steroids; Z95.1 Presence of aortocoronary bypass graft; I25.10 Atherosclerotic heart disease of native coronary artery without angina pectoris; I10 Essential (primary) hypertension; E78.5 Hyperlipidemia, unspecified
CPT/HCPCS: 72149; 73562; 80053; 85025; 85651; 86140; 87040; 96374; 96375; 96376; 99285; A9577; J1170

== ENCOUNTER 2023-02-26 15:20 | Outpatient (CLI) | payer MEDICARE, SELFPAY ==
[2023-02-26 15:50] LABS: Alanine Aminotransferase 17 U/L (0-41); Albumin Level 4.1 g/dL (3.5-5.2); Alkaline Phosphatase 79 U/L (40-130); Anion Gap 17.4 (5-19); Aspartate Amino Transferase 17 U/L (0-40); Blood Urea Nitrogen 14 mg/dL (8-23); C Reactive Protein 41.7 mg/L (0.0-4.9); Calcium 9.4 mg/dL (8.5-10.5); Carbon Dioxide 26 mmol/L (22-29); Chloride 97 mmol/L (98-107); Globulin 3.2 g/dL (1.3-4.6); Glomerular Filtration Rate 60.2 mL/min (90-130); Glucose 103 mg/dL (65-115); Osmolality Calculated 285 mOsm/kg (285-295); Potassium 3.4 mmol/L (3.5-5.1); Sodium 137 mmol/L (136-145); Total Bilirubin 0.4 mg/dL (0.15-1.2); Total Protein 7.3 g/dL (6.6-8.7)
[2023-02-26 15:51] LABS: Vancomycin Trough 11.7 ug/mL (10-15)
[2023-02-26 15:53] LABS: Basophils # 0.1 10^3/uL (0.0-0.1); Basophils % 0.9 %; Eosinophils # 0.1 10^3/uL (0.0-0.8); Eosinophils % 1.3 %; Hemoglobin 13.3 g/dL (11.7-16.6); Lymphocytes # 1.2 10^3/uL (0.8-4.8); Lymphocytes % 14.1 %; Mean Corpuscular HGB Conc 31.7 g/dL (30.0-36.0); Mean Corpuscular Hemoglobin 26.8 pg (28.0-34.0); Mean Corpuscular Volume 84.5 fl (80-94); Mean Platelet Volume 10.7 fL (7.4-10.4); Monocytes # 0.7 10^3/uL (0.2-0.9); Monocytes % 8.1 %; Neutrophils # 6.28 10^3/uL (1.8-7.7); Neutrophils % 74.5 %; Nucleated Red Blood Cells % 0 %; Platelet Count 232 10^3/cmm (130-400); Red Blood Count 4.97 10^6/uL (4.1-5.3); Red Cell Distribution Width 14.2 % (12.1-15.1); White Blood Count 8.4 10^3/uL (4.0-10.0)
== END 2023-02-26 15:21 | disposition home or self-care (01) ==
PROVIDERS: PCP Family Medicine; Visit Provider Family Medicine
DX: M86.9 Osteomyelitis, unspecified (principal)
CPT/HCPCS: 80053; 80202; 85025; 86140

== ENCOUNTER 2023-03-05 15:57 | Outpatient (CLI) | payer MEDICARE, SELFPAY ==
[2023-03-05 16:35] LABS: Basophils # 0.1 10^3/uL (0.0-0.1); Basophils % 0.9 %; Eosinophils # 0.1 10^3/uL (0.0-0.8); Eosinophils % 1.4 %; Hematocrit 37.8 % (42.0-52.0); Hemoglobin 12.4 g/dL (11.7-16.6); Lymphocytes # 0.9 10^3/uL (0.8-4.8); Lymphocytes % 12.9 %; Mean Corpuscular HGB Conc 32.8 g/dL (30.0-36.0); Mean Corpuscular Hemoglobin 27.6 pg (28.0-34.0); Mean Corpuscular Volume 84.2 fl (80-94); Mean Platelet Volume 10.8 fL (7.4-10.4); Monocytes # 0.5 10^3/uL (0.2-0.9); Monocytes % 7.8 %; Neutrophils # 5.28 10^3/uL (1.8-7.7); Neutrophils % 76.3 %; Nucleated Red Blood Cells % 0 %; Platelet Count 204 10^3/cmm (130-400); Red Blood Count 4.49 10^6/uL (4.1-5.3); Red Cell Distribution Width 14.1 % (12.1-15.1); White Blood Count 6.9 10^3/uL (4.0-10.0)
[2023-03-05 17:28] LABS: Alanine Aminotransferase 13 U/L (0-41); Albumin Level 3.9 g/dL (3.5-5.2); Alkaline Phosphatase 84 U/L (40-130); Aspartate Amino Transferase 14 U/L (0-40); Blood Urea Nitrogen 19 mg/dL (8-23); C Reactive Protein 48.2 mg/L (0.0-4.9); Calcium 9.2 mg/dL (8.5-10.5); Carbon Dioxide 25 mmol/L (22-29); Chloride 100 mmol/L (98-107); Globulin 2.8 g/dL (1.3-4.6); Glomerular Filtration Rate 60.2 mL/min (90-130); Glucose 112 mg/dL (65-115); Osmolality Calculated 291 mOsm/kg (285-295); Sodium 139 mmol/L (136-145); Total Bilirubin 0.4 mg/dL (0.15-1.2); Total Protein 6.7 g/dL (6.6-8.7); Vancomycin Trough 11.8 ug/mL (10-15)
[2023-03-05 17:29] LABS: Anion Gap 18.3 (5-19); Potassium 4.3 mmol/L (3.5-5.1)
== END 2023-03-05 15:58 | disposition home or self-care (01) ==
LOC: LAB 15:58
PROVIDERS: PCP Family Medicine; Visit Provider Family Medicine
DX: Z01.89 Encounter for other specified special examinations (principal)
CPT/HCPCS: 80053; 80202; 85025; 86140

== ENCOUNTER 2023-03-12 15:18 | Outpatient (CLI) | payer MEDICARE, SELFPAY ==
[2023-03-12 16:06] LABS: Basophils # 0.1 10^3/uL (0.0-0.1); Eosinophils # 0.1 10^3/uL (0.0-0.8); Eosinophils % 2.3 %; Hematocrit 40.3 % (42.0-52.0); Hemoglobin 13.1 g/dL (11.7-16.6); Lymphocytes % 16.1 %; Mean Corpuscular HGB Conc 32.5 g/dL (30.0-36.0); Mean Corpuscular Hemoglobin 26.8 pg (28.0-34.0); Mean Corpuscular Volume 82.6 fl (80-94); Mean Platelet Volume 10.5 fL (7.4-10.4); Monocytes # 0.6 10^3/uL (0.2-0.9); Monocytes % 10.5 %; Neutrophils # 4.14 10^3/uL (1.8-7.7); Neutrophils % 68.8 %; Nucleated Red Blood Cells % 0 %; Platelet Count 211 10^3/cmm (130-400); Red Blood Count 4.88 10^6/uL (4.1-5.3); Red Cell Distribution Width 14.4 % (12.1-15.1)
[2023-03-12 16:28] LABS: Alanine Aminotransferase 14 U/L (0-41); Albumin Level 4.2 g/dL (3.5-5.2); Alkaline Phosphatase 92 U/L (40-130); Anion Gap 16.9 (5-19); Aspartate Amino Transferase 15 U/L (0-40); Blood Urea Nitrogen 21 mg/dL (8-23); C Reactive Protein 45.9 mg/L (0.0-4.9); Calcium 9.4 mg/dL (8.5-10.5); Carbon Dioxide 27 mmol/L (22-29); Chloride 98 mmol/L (98-107); Globulin 3.1 g/dL (1.3-4.6); Glomerular Filtration Rate 54.9 mL/min (90-130); Glucose 78 mg/dL (65-115); Osmolality Calculated 288 mOsm/kg (285-295); Potassium 3.9 mmol/L (3.5-5.1); Sodium 138 mmol/L (136-145); Total Bilirubin 0.4 mg/dL (0.15-1.2); Total Protein 7.3 g/dL (6.6-8.7)
[2023-03-12 16:29] LABS: Vancomycin Trough < 4.0 ug/mL (10-15)
== END 2023-03-12 15:19 | disposition home or self-care (01) ==
LOC: LAB 15:20
PROVIDERS: PCP Family Medicine; Visit Provider Family Medicine
DX: Z79.2 Long term (current) use of antibiotics (principal); M86.651 Other chronic osteomyelitis, right thigh
CPT/HCPCS: 80053; 80202; 85025; 86140

== ENCOUNTER 2023-03-19 10:14 | Outpatient (CLI) | payer MEDICARE, SELFPAY ==
[2023-03-19 10:34] LABS: Basophils # 0.1 10^3/uL (0.0-0.1); Basophils % 0.6 %; Eosinophils # 0.1 10^3/uL (0.0-0.8); Eosinophils % 0.6 %; Hematocrit 43.2 % (42.0-52.0); Lymphocytes # 1.5 10^3/uL (0.8-4.8); Lymphocytes % 14.7 %; Mean Corpuscular HGB Conc 32.4 g/dL (30.0-36.0); Mean Corpuscular Hemoglobin 26.7 pg (28.0-34.0); Mean Corpuscular Volume 82.3 fl (80-94); Monocytes # 0.4 10^3/uL (0.2-0.9); Monocytes % 4.1 %; Neutrophils # 8.03 10^3/uL (1.8-7.7); Neutrophils % 78.2 %; Nucleated Red Blood Cells % 0 %; Platelet Count 234 10^3/cmm (130-400); Red Blood Count 5.25 10^6/uL (4.1-5.3); Red Cell Distribution Width 14.5 % (12.1-15.1); White Blood Count 10.3 10^3/uL (4.0-10.0)
[2023-03-19 11:00] LABS: Alanine Aminotransferase 12 U/L (0-41); Albumin Level 4.4 g/dL (3.5-5.2); Alkaline Phosphatase 101 U/L (40-130); Anion Gap 17.4 (5-19); Aspartate Amino Transferase 14 U/L (0-40); Blood Urea Nitrogen 18 mg/dL (8-23); Calcium 9.8 mg/dL (8.5-10.5); Carbon Dioxide 26 mmol/L (22-29); Chloride 96 mmol/L (98-107); Globulin 2.9 g/dL (1.3-4.6); Glomerular Filtration Rate 54.9 mL/min (90-130); Glucose 140 mg/dL (65-115); Osmolality Calculated 286 mOsm/kg (285-295); Potassium 3.4 mmol/L (3.5-5.1); Sodium 136 mmol/L (136-145); Total Bilirubin 0.3 mg/dL (0.15-1.2); Total Protein 7.3 g/dL (6.6-8.7)
[2023-03-19 11:01] LABS: C Reactive Protein 15.3 mg/L (0.0-4.9)
== END 2023-03-19 10:15 | disposition home or self-care (01) ==
LOC: LAB 10:16
PROVIDERS: PCP Family Medicine; Visit Provider Family Medicine
DX: M86.651 Other chronic osteomyelitis, right thigh (principal)
CPT/HCPCS: 80053; 85025; 86140

== ENCOUNTER 2023-03-27 15:32 | Outpatient (CLI) | payer MEDICARE, SELFPAY ==
[2023-03-27 15:54] LABS: Basophils # 0.1 10^3/uL (0.0-0.1); Basophils % 0.5 %; Eosinophils # 0.1 10^3/uL (0.0-0.8); Eosinophils % 0.5 %; Hematocrit 43.7 % (42.0-52.0); Hemoglobin 14.1 g/dL (11.7-16.6); Lymphocytes # 1.3 10^3/uL (0.8-4.8); Mean Corpuscular HGB Conc 32.3 g/dL (30.0-36.0); Mean Corpuscular Hemoglobin 26.9 pg (28.0-34.0); Mean Corpuscular Volume 83.2 fl (80-94); Mean Platelet Volume 10.5 fL (7.4-10.4); Monocytes # 0.7 10^3/uL (0.2-0.9); Monocytes % 6.1 %; Neutrophils # 9.08 10^3/uL (1.8-7.7); Nucleated Red Blood Cells % 0 %; Platelet Count 167 10^3/cmm (130-400); Red Blood Count 5.25 10^6/uL (4.1-5.3); Red Cell Distribution Width 14.7 % (12.1-15.1); White Blood Count 11.4 10^3/uL (4.0-10.0)
[2023-03-27 16:28] LABS: Alanine Aminotransferase 15 U/L (0-41); Albumin Level 4.4 g/dL (3.5-5.2); Alkaline Phosphatase 89 U/L (40-130); Anion Gap 18.2 (5-19); Aspartate Amino Transferase 14 U/L (0-40); Blood Urea Nitrogen 17 mg/dL (8-23); C Reactive Protein 6.7 mg/L (0.0-4.9); Calcium 9.8 mg/dL (8.5-10.5); Carbon Dioxide 28 mmol/L (22-29); Chloride 95 mmol/L (98-107); Globulin 2.8 g/dL (1.3-4.6); Glomerular Filtration Rate 60.2 mL/min (90-130); Glucose 95 mg/dL (65-115); Osmolality Calculated 285 mOsm/kg (285-295); Potassium 4.2 mmol/L (3.5-5.1); Sodium 137 mmol/L (136-145); Total Bilirubin 0.5 mg/dL (0.15-1.2); Total Protein 7.2 g/dL (6.6-8.7)
== END 2023-03-27 15:33 | disposition home or self-care (01) ==
LOC: LAB 15:35
PROVIDERS: PCP Family Medicine; Visit Provider Family Medicine
DX: Z01.89 Encounter for other specified special examinations (principal)
CPT/HCPCS: 80053; 85025; 86140

== ENCOUNTER → 2023-03-29 13:44 | Outpatient (BNVA) | payer MEDICARE, SELFPAY | PROVIDERS: PCP Family Medicine; Visit Provider Internal Medicine Rheumatology | DX: M06.041 Rheumatoid arthritis without rheumatoid factor, right hand (principal); M06.042 Rheumatoid arthritis without rheumatoid factor, left hand; M54.9 Dorsalgia, unspecified; Z79.899 Other long term (current) drug therapy; Z98.1 Arthrodesis status; Z79.52 Long term (current) use of systemic steroids; M53.3 Sacrococcygeal disorders, not elsewhere classified | CPT/HCPCS: 36415; 72072; 80076; 82565; 85025; 85651; 86140; 99215 ==

== ENCOUNTER 2023-04-02 15:12 | Outpatient (CLI) | payer MEDICARE, SELFPAY ==
[2023-04-02 15:29] LABS: Basophils # 0.1 10^3/uL (0.0-0.1); Basophils % 0.5 %; Eosinophils # 0.1 10^3/uL (0.0-0.8); Eosinophils % 0.5 %; Hematocrit 44.6 % (42.0-52.0); Hemoglobin 14.2 g/dL (11.7-16.6); Lymphocytes # 1.1 10^3/uL (0.8-4.8); Lymphocytes % 12.3 %; Mean Corpuscular HGB Conc 31.8 g/dL (30.0-36.0); Mean Corpuscular Hemoglobin 26.5 pg (28.0-34.0); Mean Corpuscular Volume 83.2 fl (80-94); Mean Platelet Volume 10.4 fL (7.4-10.4); Monocytes # 0.7 10^3/uL (0.2-0.9); Monocytes % 7.1 %; Neutrophils # 7.13 10^3/uL (1.8-7.7); Neutrophils % 77.7 %; Nucleated Red Blood Cells % 0 %; Platelet Count 169 10^3/cmm (130-400); Red Blood Count 5.36 10^6/uL (4.1-5.3); Red Cell Distribution Width 15.1 % (12.1-15.1); White Blood Count 9.2 10^3/uL (4.0-10.0)
[2023-04-02 15:57] LABS: Alanine Aminotransferase 15 U/L (0-41); Albumin Level 4.5 g/dL (3.5-5.2); Alkaline Phosphatase 89 U/L (40-130); Anion Gap 15.7 (5-19); Aspartate Amino Transferase 15 U/L (0-40); Blood Urea Nitrogen 16 mg/dL (8-23); Calcium 9.3 mg/dL (8.5-10.5); Carbon Dioxide 27 mmol/L (22-29); Chloride 96 mmol/L (98-107); Globulin 2.4 g/dL (1.3-4.6); Glomerular Filtration Rate 66.6 mL/min (90-130); Glucose 117 mg/dL (65-115); Osmolality Calculated 282 mOsm/kg (285-295); Potassium 3.7 mmol/L (3.5-5.1); Sodium 135 mmol/L (136-145); Total Bilirubin 0.3 mg/dL (0.15-1.2); Total Protein 6.9 g/dL (6.6-8.7)
== END 2023-04-02 15:13 | disposition home or self-care (01) ==
LOC: LAB 15:13
PROVIDERS: PCP Family Medicine; Visit Provider Family Medicine
DX: M86.651 Other chronic osteomyelitis, right thigh (principal)
CPT/HCPCS: 80053; 85025; 86140

== ENCOUNTER 2023-04-09 15:29 | Outpatient (CLI) | payer MEDICARE, SELFPAY ==
[2023-04-09 16:06] LABS: Hematocrit 42.1 % (42.0-52.0); Hemoglobin 13.7 g/dL (11.7-16.6); Mean Corpuscular HGB Conc 32.5 g/dL (30.0-36.0); Mean Corpuscular Hemoglobin 27.3 pg (28.0-34.0); Mean Corpuscular Volume 83.9 fl (80-94); Mean Platelet Volume 10.2 fL (7.4-10.4); Platelet Count 182 10^3/cmm (130-400); Red Blood Count 5.02 10^6/uL (4.1-5.3); Red Cell Distribution Width 15.8 % (12.1-15.1); White Blood Count 8.6 10^3/uL (4.0-10.0)
[2023-04-09 16:28] LABS: Absolute Segmented Neutrophil 6.4 10/cmm (1.6-7.1); Band Neutrophils Absolute 0.1 10^3/cmm (0.0-1.2); Segmented Neutrophils 74 %; Total Cells Counted 100 (0-100)
[2023-04-09 16:29] LABS: Absolute Neutrophil 6.5 10^3/cmm (1.4-6.5); Basophils Absolute 0.1 10^3/cmm (0.0-0.2); Eosinophils 1 %; Lymphocytes 12 %; Monocytes Absolute 0.7 10^3/cmm (0.1-0.6); Platelet Estimate Normal (Normal)
[2023-04-09 16:31] LABS: Alanine Aminotransferase 15 U/L (0-41); Albumin Level 4.1 g/dL (3.5-5.2); Alkaline Phosphatase 95 U/L (40-130); Anion Gap 16.9 (5-19); Aspartate Amino Transferase 13 U/L (0-40); Blood Urea Nitrogen 14 mg/dL (8-23); Calcium 9.3 mg/dL (8.5-10.5); Carbon Dioxide 27 mmol/L (22-29); Chloride 96 mmol/L (98-107); Globulin 2.5 g/dL (1.3-4.6); Glomerular Filtration Rate 60.2 mL/min (90-130); Glucose 91 mg/dL (65-115); Osmolality Calculated 282 mOsm/kg (285-295); Potassium 3.9 mmol/L (3.5-5.1); Sodium 136 mmol/L (136-145); Total Bilirubin 0.5 mg/dL (0.15-1.2); Total Protein 6.6 g/dL (6.6-8.7)
== END 2023-04-09 15:30 | disposition home or self-care (01) ==
LOC: LAB 15:34
PROVIDERS: PCP Family Medicine; Visit Provider Family Medicine
DX: M86.651 Other chronic osteomyelitis, right thigh (principal); Z79.2 Long term (current) use of antibiotics
CPT/HCPCS: 80053; 85007; 85027; 86140

== ENCOUNTER → 2023-04-12 10:42 | Outpatient (BNVA) | payer MEDICARE, SELFPAY | PROVIDERS: PCP Family Medicine; Visit Provider Nurse Practitioner Family | DX: L57.8 Other skin changes due to chronic exposure to nonionizing radiation (principal); Z85.828 Personal history of other malignant neoplasm of skin; Z87.891 Personal history of nicotine dependence; L82.1 Other seborrheic keratosis; L85.3 Xerosis cutis; D22.5 Melanocytic nevi of trunk; L81.4 Other melanin hyperpigmentation; L57.0 Actinic keratosis; L60.3 Nail dystrophy | CPT/HCPCS: 17000; 17003; 99213 ==

== ENCOUNTER → 2023-05-29 13:57 | Outpatient (BNVA) | payer MEDICARE, SELFPAY | PROVIDERS: PCP Family Medicine; Visit Provider Physician Assistant | DX: M54.16 Radiculopathy, lumbar region (principal) | CPT/HCPCS: 72110; 99213 ==

== ENCOUNTER → 2023-06-21 13:57 | Outpatient (BNVA) | payer MEDICARE, SELFPAY | PROVIDERS: PCP Family Medicine; Visit Provider Internal Medicine Rheumatology | DX: M06.041 Rheumatoid arthritis without rheumatoid factor, right hand (principal); M06.042 Rheumatoid arthritis without rheumatoid factor, left hand; Z79.899 Other long term (current) drug therapy; Z71.89 Other specified counseling; M53.3 Sacrococcygeal disorders, not elsewhere classified | CPT/HCPCS: 99214 ==

== ENCOUNTER 2023-08-20 17:09 | Outpatient (CLI) | payer MEDICARE, SELFPAY ==
[2023-08-20 17:35] LABS: Hematocrit 35.9 % (37-53); Mean Corpuscular Hemoglobin 27.1 pg (27-33); Mean Corpuscular Volume 84.7 fl (82-101); Mean Platelet Volume 10.8 fL (7.4-10.4); Platelet Count 337 10^3/cmm (157-399); Red Blood Count 4.24 10^6/uL (3.85-5.65); Red Cell Distribution Width 15.2 % (12.1-15.1); White Blood Count 8.24 10^3/uL (3.29-11.43)
[2023-08-20 17:59] LABS: Alanine Aminotransferase 14 U/L (0-41); Albumin Level 3.7 g/dL (3.5-5.2); Alkaline Phosphatase 68 U/L (40-130); Anion Gap 17.5 (5-19); Aspartate Amino Transferase 14 U/L (0-40); Blood Urea Nitrogen 18 mg/dL (8-23); Calcium 9.2 mg/dL (8.5-10.5); Carbon Dioxide 26 mmol/L (22-29); Chloride 102 mmol/L (98-107); Globulin 2.7 g/dL (1.3-4.6); Glomerular Filtration Rate 60.2 mL/min (90-130); Glucose 97 mg/dL (65-115); Osmolality Calculated 296 mOsm/kg (285-295); Potassium 3.5 mmol/L (3.5-5.1); Slide Review Slide Review Perform; Sodium 142 mmol/L (136-145); Total Bilirubin 0.3 mg/dL (0.15-1.2); Total Protein 6.4 g/dL (6.6-8.7)
[2023-08-20 18:03] LABS: Absolute Segmented Neutrophil 6.1 10/cmm (1.6-7.1); Anisocytosis 1+; Band Neutrophils Absolute 0.7 10^3/cmm (0.0-1.2); Eosinophils 0 %; Lymphocytes 10 %; Lymphocytes Absolute 0.8 10^3/cmm (1.2-3.4); Monocytes Absolute 0.2 10^3/cmm (0.1-0.6); Poikilocytosis Trace; Segmented Neutrophils 74 %; Total Cells Counted 100 (0-100)
[2023-08-20 18:04] LABS: Absolute Neutrophil 6.8 10^3/cmm (1.4-6.5); Platelet Estimate Normal (Normal); Smudge Cells 1+
[2023-08-21 00:05] LABS: Vancomycin Trough 9.8 ug/mL (10-15)
== END 2023-08-20 17:10 | disposition home or self-care (01) ==
PROVIDERS: PCP Family Medicine; Visit Provider Family Medicine
DX: Z01.89 Encounter for other specified special examinations (principal)
CPT/HCPCS: 80053; 80202; 85007; 85025

== ENCOUNTER 2023-08-27 15:14 | Outpatient (CLI) | payer MEDICARE, SELFPAY ==
[2023-08-27 15:31] LABS: Basophils # 0.1 10^3/uL (0.0-0.1); Basophils % 0.9 %; Eosinophils % 0.1 %; Hematocrit 44.5 % (37-53); Lymphocytes # 0.4 10^3/uL (0.8-4.8); Lymphocytes % 5.3 %; Mean Corpuscular HGB Conc 31.9 g/dL (30-55); Mean Corpuscular Hemoglobin 26.9 pg (27-33); Mean Corpuscular Volume 84.4 fl (82-101); Mean Platelet Volume 10.7 fL (7.4-10.4); Monocytes # 0.6 10^3/uL (0.2-0.9); Monocytes % 7.1 %; Neutrophils # 6.51 10^3/uL (1.8-7.7); Neutrophils % 82.7 %; Nucleated Red Blood Cells % 0 %; Platelet Count 155 10^3/cmm (157-399); Red Blood Count 5.27 10^6/uL (3.85-5.65); Red Cell Distribution Width 15.6 % (12.1-15.1); White Blood Count 7.88 10^3/uL (3.29-11.43)
[2023-08-27 16:27] LABS: Alanine Aminotransferase 15 U/L (0-41); Albumin Level 4.1 g/dL (3.5-5.2); Alkaline Phosphatase 70 U/L (40-130); Aspartate Amino Transferase 16 U/L (0-40); Blood Urea Nitrogen 19 mg/dL (8-23); Calcium 9.3 mg/dL (8.5-10.5); Carbon Dioxide 26 mmol/L (22-29); Chloride 100 mmol/L (98-107); Creatine Phosphokinase 21 U/L (39-308); Globulin 2.7 g/dL (1.3-4.6); Glomerular Filtration Rate 54.9 mL/min (90-130); Glucose 91 mg/dL (65-115); Osmolality Calculated 294 mOsm/kg (285-295); Sodium 141 mmol/L (136-145); Total Bilirubin 0.5 mg/dL (0.15-1.2); Total Protein 6.8 g/dL (6.6-8.7)
== END 2023-08-27 15:15 | disposition home or self-care (01) ==
LOC: LAB 15:18
PROVIDERS: PCP Family Medicine; Visit Provider Family Medicine
DX: Z01.89 Encounter for other specified special examinations (principal)
CPT/HCPCS: 80053; 82550; 85025

== ENCOUNTER 2023-09-03 16:36 | Outpatient (CLI) | payer MEDICARE, SELFPAY ==
[2023-09-03 16:52] LABS: Basophils # 0.1 10^3/uL (0.0-0.1); Basophils % 0.7 %; Eosinophils # 0.1 10^3/uL (0.0-0.8); Eosinophils % 0.9 %; Hematocrit 37.7 % (37-53); Lymphocytes # 0.8 10^3/uL (0.8-4.8); Lymphocytes % 8.2 %; Mean Corpuscular HGB Conc 31.8 g/dL (30-55); Mean Corpuscular Volume 84.7 fl (82-101); Mean Platelet Volume 11.3 fL (7.4-10.4); Monocytes # 0.8 10^3/uL (0.2-0.9); Monocytes % 8.8 %; Neutrophils # 7.36 10^3/uL (1.8-7.7); Neutrophils % 79.8 %; Nucleated Red Blood Cells % 0 %; Platelet Count 188 10^3/cmm (157-399); Red Blood Count 4.45 10^6/uL (3.85-5.65); Red Cell Distribution Width 15.8 % (12.1-15.1); White Blood Count 9.22 10^3/uL (3.29-11.43)
[2023-09-03 17:05] LABS: Vancomycin Trough 15.6 ug/mL (10-15)
[2023-09-03 17:06] LABS: Alanine Aminotransferase 14 U/L (0-41); Albumin Level 4.3 g/dL (3.5-5.2); Alkaline Phosphatase 69 U/L (40-130); Anion Gap 18.8 (5-19); Aspartate Amino Transferase 12 U/L (0-40); Blood Urea Nitrogen 22 mg/dL (8-23); C Reactive Protein 46.2 mg/L (0.0-4.9); Calcium 10.1 mg/dL (8.5-10.5); Carbon Dioxide 27 mmol/L (22-29); Chloride 98 mmol/L (98-107); Globulin 2.8 g/dL (1.3-4.6); Glomerular Filtration Rate 43.2 mL/min (90-130); Glucose 83 mg/dL (65-115); Osmolality Calculated 292 mOsm/kg (285-295); Potassium 3.8 mmol/L (3.5-5.1); Sodium 140 mmol/L (136-145); Total Bilirubin 0.4 mg/dL (0.15-1.2); Total Protein 7.1 g/dL (6.6-8.7)
== END 2023-09-03 16:37 | disposition home or self-care (01) ==
LOC: LAB 16:42
PROVIDERS: PCP Family Medicine; Visit Provider Family Medicine
DX: M86.651 Other chronic osteomyelitis, right thigh (principal)
CPT/HCPCS: 80053; 80202; 85025; 86140

== ENCOUNTER 2023-09-10 15:38 | Outpatient (CLI) | payer MEDICARE, SELFPAY ==
[2023-09-10 16:24] LABS: Basophils # 0.1 10^3/uL (0.0-0.1); Basophils % 0.7 %; Eosinophils # 0.1 10^3/uL (0.0-0.8); Eosinophils % 1.5 %; Hematocrit 34.9 % (37-53); Lymphocytes # 0.7 10^3/uL (0.8-4.8); Lymphocytes % 8.2 %; Mean Corpuscular HGB Conc 33.8 g/dL (30-55); Mean Corpuscular Hemoglobin 27.3 pg (27-33); Mean Corpuscular Volume 80.8 fl (82-101); Mean Platelet Volume 11.4 fL (7.4-10.4); Monocytes # 0.6 10^3/uL (0.2-0.9); Monocytes % 6.9 %; Neutrophils # 7.24 10^3/uL (1.8-7.7); Neutrophils % 81.4 %; Nucleated Red Blood Cells % 0 %; Platelet Count 142 10^3/cmm (157-399); Red Blood Count 4.32 10^6/uL (3.85-5.65); Red Cell Distribution Width 15.3 % (12.1-15.1); White Blood Count 8.89 10^3/uL (3.29-11.43)
[2023-09-10 16:50] LABS: Alanine Aminotransferase 12 U/L (0-41); Albumin Level 4.3 g/dL (3.5-5.2); Alkaline Phosphatase 66 U/L (40-130); Anion Gap 23.2 (5-19); Aspartate Amino Transferase 14 U/L (0-40); Blood Urea Nitrogen 75 mg/dL (8-23); C Reactive Protein 83.2 mg/L (0.0-4.9); Calcium 9.7 mg/dL (8.5-10.5); Carbon Dioxide 23 mmol/L (22-29); Chloride 93 mmol/L (98-107); Globulin 2.8 g/dL (1.3-4.6); Glomerular Filtration Rate 9.4 mL/min (90-130); Glucose 76 mg/dL (65-115); Osmolality Calculated 301 mOsm/kg (285-295); Potassium 4.2 mmol/L (3.5-5.1); Sodium 135 mmol/L (136-145); Total Bilirubin 0.4 mg/dL (0.15-1.2); Total Protein 7.1 g/dL (6.6-8.7)
[2023-09-10 16:52] LABS: Vancomycin Trough 32.3 ug/mL (10-15)
== END 2023-09-10 15:39 | disposition home or self-care (01) ==
PROVIDERS: PCP Family Medicine; Visit Provider Family Medicine
DX: M86.651 Other chronic osteomyelitis, right thigh (principal)
CPT/HCPCS: 80053; 80202; 85025; 86140

== ENCOUNTER 2023-11-14 11:09 | Outpatient (CLI) | payer MEDICARE, SELFPAY ==
[2023-11-14 11:48] LABS: Albumin Level 3.8 g/dL (3.5-5.2); Anion Gap 14.8 (5-19); Blood Urea Nitrogen 20 mg/dL (8-23); Calcium 9.7 mg/dL (8.5-10.5); Carbon Dioxide 24 mmol/L (22-29); Chloride 103 mmol/L (98-107); Glomerular Filtration Rate 35.4 mL/min (90-130); Glucose 115 mg/dL (65-115); Phosphorus 3.5 mg/dL (2.5-4.5); Potassium 3.8 mmol/L (3.5-5.1); Sodium 138 mmol/L (136-145)
== END 2023-11-14 11:10 | disposition home or self-care (01) ==
LOC: LAB 11:11
PROVIDERS: PCP Family Medicine; Visit Provider Internal Medicine Nephrology
DX: N17.9 Acute kidney failure, unspecified (principal)
CPT/HCPCS: 80069

== ENCOUNTER → 2023-12-17 14:10 | Outpatient (BNVA) | payer MEDICARE, SELFPAY | PROVIDERS: PCP Family Medicine; Visit Provider Internal Medicine Rheumatology | DX: M06.041 Rheumatoid arthritis without rheumatoid factor, right hand (principal); M06.042 Rheumatoid arthritis without rheumatoid factor, left hand; Z79.899 Other long term (current) drug therapy; Z71.89 Other specified counseling; M53.3 Sacrococcygeal disorders, not elsewhere classified | CPT/HCPCS: 99214 ==

== ENCOUNTER → 2024-01-08 14:56 | Outpatient (BNVA) | payer MEDICARE, SELFPAY | PROVIDERS: PCP Family Medicine; Visit Provider Dermatology | DX: L60.0 Ingrowing nail (principal); L21.8 Other seborrheic dermatitis; L57.0 Actinic keratosis; D22.39 Melanocytic nevi of other parts of face; D69.2 Other nonthrombocytopenic purpura; Z85.828 Personal history of other malignant neoplasm of skin | CPT/HCPCS: 17000; 99214 ==

== ENCOUNTER → 2024-07-07 09:56 | Outpatient (BNVA) | payer MEDICARE, SELFPAY | PROVIDERS: PCP Family Medicine; Visit Provider Nurse Practitioner Family | DX: I25.10 Atherosclerotic heart disease of native coronary artery without angina pectoris (principal); I10 Essential (primary) hypertension; Z87.891 Personal history of nicotine dependence | CPT/HCPCS: 99214 ==

== ENCOUNTER → 2024-08-27 08:55 | Outpatient (BNVA) | payer MEDICARE, SELFPAY | PROVIDERS: PCP Family Medicine; Visit Provider Internal Medicine Rheumatology | DX: M06.041 Rheumatoid arthritis without rheumatoid factor, right hand (principal); M06.042 Rheumatoid arthritis without rheumatoid factor, left hand; M53.3 Sacrococcygeal disorders, not elsewhere classified; Z79.899 Other long term (current) drug therapy; Z71.89 Other specified counseling; Z98.1 Arthrodesis status | CPT/HCPCS: 99214; 99215 ==

== ENCOUNTER → 2025-01-06 11:27 | Outpatient (BNVA) | payer MEDICARE, SELFPAY | PROVIDERS: PCP Family Medicine; Visit Provider Internal Medicine Cardiovascular Disease | DX: I25.10 Atherosclerotic heart disease of native coronary artery without angina pectoris (principal); I10 Essential (primary) hypertension; E78.5 Hyperlipidemia, unspecified; I65.23 Occlusion and stenosis of bilateral carotid arteries; M06.00 Rheumatoid arthritis without rheumatoid factor, unspecified site; Z87.891 Personal history of nicotine dependence | CPT/HCPCS: 99214 ==

== ENCOUNTER → 2025-01-07 12:57 | Outpatient (BNVA) | payer MEDICARE, SELFPAY | PROVIDERS: PCP Family Medicine; Visit Provider Nurse Practitioner Family | DX: D22.39 Melanocytic nevi of other parts of face (principal); D69.2 Other nonthrombocytopenic purpura; L57.8 Other skin changes due to chronic exposure to nonionizing radiation; L81.4 Other melanin hyperpigmentation; Z08 Encounter for follow-up examination after completed treatment for malignant neoplasm; Z85.828 Personal history of other malignant neoplasm of skin; D48.5 Neoplasm of uncertain behavior of skin; L57.0 Actinic keratosis | CPT/HCPCS: 17000; 69100; 99214 ==

== ENCOUNTER 2025-01-16 13:32 | Outpatient (CLI) | payer MEDICARE, SELFPAY ==
--- NOTE | 2025-01-16 14:00 | USCV_ITS ---
Aj Alegre Age: 69 Gender: M : 1955 Exam Date: 01/16/2025 14:10 Ordering Phys: Milena Batista MD ([email or web address]) Technologist: R Exam Location[place] [facility] [place]ication: stemosis Risk Factors: Previous Vascular Surgery: Right Brachial BP: / Left Brachial BP: / Right Left Velocity (cm/s) Spectral Plaque Velocity (cm/s) Spectral Plaque Syst/Diast Broadening Syst/Diast Broadening 130.70/23.00 Prox CCA 87.70 / 12.60 101.20/25.20 Mid CCA 79.90 / 10.80 107.00/25.80 Distal CCA 69.40 / 12.10 132.60/28.10 Prox ICA 288.50/ 65.10 87.40/ 21.10 Mid ICA 23.40 / 4.30 74.90/ 19.50 Distal ICA 10.80 / 8.20 155.90 ECA 116.40 1.20 ICA/CCA 4.20 Antegrade Vertebral Antegrade 43.10/ 11.90 cm/s 50.40/ 14.50 cm/s Tri Subclavian Tri 125.9 148.0 0 0 CONCLUSIONS Right ICA stenosis 50-69%. Mild atheromatous plaque right carotid bulb/ICA. Left ICA stenosis 70-99%. Moderate atheromatous plaque left carotid bulb/ICA. Recommend CTA Normal antegrade Doppler flow noted in the right vertebral artery. Normal antegrade Doppler flow noted in the left vertebral artery. Heriberto Calhoun MD (Electronically Signed) Final Date: 16 January 2025 14:56 S
== END 2025-01-16 13:33 | disposition home or self-care (01) ==
PROVIDERS: PCP Family Medicine; Visit Provider Internal Medicine Cardiovascular Disease
DX: I65.23 Occlusion and stenosis of bilateral carotid arteries (principal)
CPT/HCPCS: 93880

== ENCOUNTER → 2025-01-28 09:17 | Outpatient (BNVA) | payer MEDICARE, SELFPAY | PROVIDERS: PCP Family Medicine; Visit Provider Dermatology | DX: C44.219 Basal cell carcinoma of skin of left ear and external auricular canal (principal); L57.0 Actinic keratosis | CPT/HCPCS: 13152; 17000; 17311 ==

== ENCOUNTER → 2025-03-26 10:16 | Outpatient (BNVA) | payer MEDICARE, SELFPAY | PROVIDERS: PCP Family Medicine; Visit Provider Internal Medicine Rheumatology | DX: Z79.899 Other long term (current) drug therapy (principal); R07.89 Other chest pain; E78.5 Hyperlipidemia, unspecified; I65.23 Occlusion and stenosis of bilateral carotid arteries; I25.10 Atherosclerotic heart disease of native coronary artery without angina pectoris; M06.041 Rheumatoid arthritis without rheumatoid factor, right hand; M06.042 Rheumatoid arthritis without rheumatoid factor, left hand; Z71.89 Other specified counseling; M53.3 Sacrococcygeal disorders, not elsewhere classified | CPT/HCPCS: 36415; 80048; 80076; 83880; 85025; 85651; 86140; 99214 ==

== ENCOUNTER 2025-04-07 11:10 | Outpatient (CLI) | payer MEDICARE, SELFPAY ==
--- NOTE | 2025-04-07 12:45 | USCV_ITS ---
Aj Alegre Age: 69 Gender: M : 1955 Exam Date: 04/07/2025 11:27 Ordering Phys: Milena Batista MD ([email or web address]) Technologist: MONTSE [place] [facility]ication: AEAP BP: 120 / 70 HR: 62 Rhythm: Sinus Technical Quality: Adequate MEASUREMENTS (Male / Female) Normal Values 2D ECHO LV Diastolic Diameter PLAX 5.1 cm 4.2 - 5.9 / 3.9 - 5.3 cm IVS Diastolic Thickness 1.0 cm 0.6 - 1.0 / 0.6 - 0.9 cm IVS Systolic Thickness 1.8 cm LVPW Diastolic Thickness 1.1 cm 0.6 - 1.0 / 0.6 - 0.9 cm LVPW Systolic Thickness 1.6 cm LVOT Diameter 1.8 cm LV Ejection Fraction 2D Teich 54.1 % LV Ejection Fraction MOD 4C 58.3 % LV Ejection Fraction MOD 2C 56.2 % LV Ejection Fraction 2C AL 59.1 % LA Diameter 3.1 cm RA Systolic Volume 4C AL 22.9 ml RA Systolic Volume 4C MOD 22.3 ml LA Sys Volume AL 33.2 cm cubed LA Sys Volume Index AL 17.2 cm cubed/m squared Aorta at Sinotubular Diameter 2.3 cm IVC Diameter 1.8 cm M-MODE LA Ao Ratio MM 1.4 AV Cusp Separation MM 1.2 cm DOPPLER AV Peak Velocity 108.0 cm/s LVOT Peak Velocity 84.0 cm/s AV Area Cont Eq vti 1.7 cm squared AV Area Cont Eq pk 1.9 cm squared MV Peak Velocity 87.0 cm/s MV Area PHT 4.5 cm squared Mitral E to A Ratio 0.9 TR Peak Velocity 79.0 cm/s TR Peak Gradient 2.5 mmHg TV Peak E Velocity 66.0 cm/s PV Peak Velocity 104.0 cm/s FINDINGS Left Ventricle Normal left ventricular size with borderline low ejection fraction of 50 to 55%.abnormal septal motion consistent with conduction abnormality. Right Ventricle Normal right ventricular size and systolic function. Right Atrium Mildly increased right atrial size. Left Atrium Mildly increased left atrial size. Mitral Valve Thickened mitral valve. Aortic Valve Thickened aortic valve. Tricuspid Valve No gross abnormalities noted Pulmonic Valve Pulmonic valve not well visualized. Pericardium Normal pericardium without effusion. Aorta Normal ascending aorta dimension. IVC Normal inferior vena cava. CONCLUSIONS Normal left ventricular size with borderline low ejection fraction of 50 to 55%.abnormal septal motion consistent with conduction abnormality. Mild biatrial enlargement Minimally thickened aortic and mitral valves. There is no pericardial effusion. There are no intracardiac masses. Comparison with the previous study is difficult because of the difference in the technical quality. Dr Milena Batista MD FAC (Electronically Signed) Final Date: 11 April 2025 19:35 S
== END 2025-04-07 11:11 | disposition home or self-care (01) ==
LOC: RAD 11:11
PROVIDERS: PCP Family Medicine; Visit Provider Internal Medicine Cardiovascular Disease
DX: D22.39 Melanocytic nevi of other parts of face (principal); L57.8 Other skin changes due to chronic exposure to nonionizing radiation; L81.4 Other melanin hyperpigmentation; Z08 Encounter for follow-up examination after completed treatment for malignant neoplasm; Z85.828 Personal history of other malignant neoplasm of skin; D48.5 Neoplasm of uncertain behavior of skin; L57.0 Actinic keratosis; I25.10 Atherosclerotic heart disease of native coronary artery without angina pectoris; I50.9 Heart failure, unspecified
CPT/HCPCS: 11102; 17000; 93306; 99213

== ENCOUNTER 2025-05-15 10:51 | Outpatient (CLI) | payer MEDICARE, SELFPAY ==
--- NOTE | 2025-05-15 11:15 | USCV_ITS ---
Aj Alegre Age: 69 Gender: M : 1955 Exam Date: 05/15/2025 11:06 Ordering Phys: Nikos Mcfadden MD Technologist: USR [place] [facility] [place] Indication: left stenosis Risk Factors: Previous Vascular Surgery: Right Brachial BP: / Left Brachial BP: / Right Left Velocity (cm/s) Spectral Plaque Velocity (cm/s) Spectral Plaque Syst/Diast Broadening Syst/Diast Broadening 73.70/ 18.00 Prox CCA 89.30 / 19.50 80.20/ 21.90 Mid CCA 90.50 / 23.20 63.40/ 15.40 Distal CCA 73.40 / 17.70 54.00/ 17.70 Prox ICA 32.40 / 11.50 60.10/ 17.70 Mid ICA 61.80 / 22.20 58.00/ 19.40 Distal ICA 58.80 / 19.00 63.60 ECA 56.10 0.90 ICA/CCA 0.80 Antegrade Vertebral Antegrade 20.10/ 6.50 cm/s 40.80/ 13.20 cm/s Tri Subclavian Tri 43.30 97.80 FINDINGS Comparison:. 01/16/25 No significant elevation of systolic or diastolic velocities. Diffuse, mild bilateral scattered calcified plaque throughout the common carotid arteries and extending through the bifurcation. Antegrade vertebral arteries. CONCLUSIONS Bilateral ICA stenosis less than 50%. Prior left endarterectomy. Dr. Maribell Cabrera DO (Electronically Signed) Final Date: 15 May 2025 12:03 S
== END 2025-05-15 10:52 | disposition home or self-care (01) ==
LOC: RAD 10:52
PROVIDERS: PCP Family Medicine; Visit Provider Surgery
DX: I65.23 Occlusion and stenosis of bilateral carotid arteries (principal)
CPT/HCPCS: 93880

== ENCOUNTER → 2025-07-07 15:28 | Outpatient (BNVA) | payer MEDICARE, SELFPAY | PROVIDERS: PCP Family Medicine; Visit Provider Nurse Practitioner Family | DX: L81.4 Other melanin hyperpigmentation (principal); L57.8 Other skin changes due to chronic exposure to nonionizing radiation; D22.39 Melanocytic nevi of other parts of face; D68.2 Hereditary deficiency of other clotting factors; Z08 Encounter for follow-up examination after completed treatment for malignant neoplasm; Z85.828 Personal history of other malignant neoplasm of skin; D48.5 Neoplasm of uncertain behavior of skin; L57.0 Actinic keratosis | CPT/HCPCS: 11102; 17000; 99213 ==

== ENCOUNTER → 2025-07-23 13:49 | Outpatient (BNVA) | payer MEDICARE, SELFPAY | PROVIDERS: PCP Family Medicine; Visit Provider Internal Medicine Cardiovascular Disease | DX: I25.10 Atherosclerotic heart disease of native coronary artery without angina pectoris (principal); I10 Essential (primary) hypertension; E78.2 Mixed hyperlipidemia; I65.23 Occlusion and stenosis of bilateral carotid arteries; R53.83 Other fatigue; M06.00 Rheumatoid arthritis without rheumatoid factor, unspecified site; Z95.1 Presence of aortocoronary bypass graft; Z87.891 Personal history of nicotine dependence; Z98.61 Coronary angioplasty status | CPT/HCPCS: 99214 ==

== ENCOUNTER → 2025-08-11 09:10 | Outpatient (BNVA) | payer MEDICARE, SELFPAY | PROVIDERS: PCP Family Medicine; Visit Provider Dermatology | DX: L82.1 Other seborrheic keratosis (principal); D69.2 Other nonthrombocytopenic purpura; Z08 Encounter for follow-up examination after completed treatment for malignant neoplasm; Z85.828 Personal history of other malignant neoplasm of skin; C44.319 Basal cell carcinoma of skin of other parts of face; D48.5 Neoplasm of uncertain behavior of skin; L82.0 Inflamed seborrheic keratosis; R20.8 Other disturbances of skin sensation; L53.8 Other specified erythematous conditions; L29.89 Other pruritus; L57.0 Actinic keratosis | CPT/HCPCS: 11104; 11642; 13132; 17000; 17110; 99213 ==

== ENCOUNTER → 2025-08-21 10:40 | Outpatient (BNVA) | payer MEDICARE, SELFPAY | PROVIDERS: PCP Family Medicine; Visit Provider Dermatology | DX: D48.5 Neoplasm of uncertain behavior of skin (principal); I78.8 Other diseases of capillaries; Z08 Encounter for follow-up examination after completed treatment for malignant neoplasm; Z85.828 Personal history of other malignant neoplasm of skin | CPT/HCPCS: 99213 ==